=== PATIENT | male | born 1935 | race Caucasian/White ===

== ENCOUNTER 2020-03-16 17:13 | Emergency (ER) | payer OTHER ==
--- OUTSIDE RECORDS SUMMARY | 2020-03-16 17:15 | XMS REPORT | Clinical Summary ---
:1935 Author Organization [facility] Address [address] [place] [address] Care Team Providers Name Role Phone Artem Resendiz Primary Care Provider Santosh Romero Unavailable Allergies Active Allergy Reactions Severity Noted Date Comments No Known Drug Allergies 08/04/2015 Medications Medication Sig Dispensed Refills Start Date End Date Status amLODIPine (NORVASC) Take 10 mg by 0 Active 10 MG tablet mouth daily. atorvastatin (LIPITOR) Take 80 mg by 0 Active 80 MG tablet mouth daily. fenofibrate (TRICOR) Take 145 mg by 0 Active 145 MG tablet mouth daily. lisinopril Take 2.5 mg by 0 Acti ve (PRINIVIL,ZESTRIL) 2.5 mouth daily. MG tablet cholecalciferol, Take 1 capsule by 0 Active vitamin D3, 2,000 unit mouth every Cap evening. cyanocobalamin Take 1,000 mcg by 0 Active (VITAMIN B-12) 1000 mouth daily. MCG tablet apixaban (ELIQUIS) 5 Take 1 tablet (5 60 tablet 3 02/19/2017 Active mg Tab tablet mg total) by mouth 2 (two) times daily. bisacodyl (DULCOLAX) 5 Take 2 tablets (10 0 02/21/20 17 Active mg EC tablet mg total) by mouth daily as needed for Constipation. bisacodyl (DULCOLAX) Place 1 0 02/20/2017 Active 10 mg suppository suppository (10 mg total) rectally daily as needed. famotidine (PEPCID) 20 Take 1 tablet (20 0 7 Active MG tablet mg total) by mouth 2 (two) times daily. amiodarone (PACERONE) Take 1 tablet (200 0 7 Active 200 MG tablet mg total) by mouth daily Take for 4 weeks, then stop. polyethylene glycol Take 17 g by mouth 0 02/20/2017 Active (GLYCOLAX) 17 gram daily. packet Active Problems Problem Noted Date S/P CABG (coronary artery bypass graft) 02/20/2017 PAF (paroxysmal atrial fibrillation) 02/20/2017 Acute kidney injury 02/20/2017 Angina pectoris, crescendo 02/13/2017 CAD (coronary artery disease) 02/13/2017 Asbestos exposure Coronary artery disease Hyperlipidemia Hypertension Cancer Overview: lung,kidney,skin Encounter for antineoplastic chemotherapy Family History Medical History Relation Name Comments Heart disease Brother Heart disease Father Stroke Mother Relation Name Status Comments Brother Father Mother Social History Tobacco Use Types Packs/Day Years Used Date Never Smoker Smokeless Tobacco: Never Used Alcohol Use Drinks/Week oz/Week Comments No Sex Assigned at Date Recorded Not on file Last Filed Vital Signs Not on file Plan of Treatment Not on file Results Not on fileafter 03/16/2019 Insurance Payer Benefit Plan / Subscriber ID Effective Dates Phone Addre ss Type Group [facility] [employer] [id number] 2016-Present MEDICARE [facility] CARE O Advance Directives For more information, please contact: [phone] Type Date Recorded 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
--- OUTSIDE RECORDS SUMMARY | 2020-03-16 17:17 | XMS REPORT | Continuity of Care Document ---
:1935 Author Organization [facility] t Address [address] [place] [address] Care Team Providers Name Role Phone Artem Resendiz Primary Care Physician AJ DOMINGUEZ Attending Clinician Unavailable AJ DOMINGUEZ Admitting Clinician Unavailable Problems Condition Condition Condition Status Onset Resolution Last Treating Co mments Source Name Details Category Date Date Treatment Clinician Date S/P CABG S/P CABG [facility]20 [place] [facility] - artery artery 00:00: Medical bypass bypass 00 [place] graft) graft) PAF PAF Disease Active [facility] (paroxysma (paroxysma 02-20 k[facility] - l atrial l atrial 00:00: Medica l fibrillati fibrillati 00 Ce nter on) on) Acute Acute Disease Active [facility] kidney kidney 02-20 [facility] - injury injury 00:00: Medical 00 [place] Angina Angina Disease Active [facility] pectoris, pectoris, 02-13 [place] [facility] - crescendo crescendo 00:00: [facility] gemma [address] [place] [address] Asbestos Asbestos Disease [facility] exposure [facility] Coronary Coronary Disease Active [facility] artery artery [facility] Hyperlipid Hyperlipid Disease Active [facility] emia emia [facility] Hypertensi Hypertensi Disease Active [facility] on on [facility] Cancer Cancer Disease Active Overview: [facility] lung,kidn [facility] Encounter Encounter Disease Active [facility] for for [facility] - antineopla antineopla Me dical stic [facility] chemothera chemothera py py Allergies, Adverse Reactions, Alerts This patient has no known allergies or adverse reactions. Family History Family Member Diagnosis Comments Start Date Stop Date Source Natural brother Heart disease [facility] Natural father Heart disease [facility] Natural mother Stroke [facility] Social History Social Habit Start Date Stop Date Quantity Comments Source Sex Assigned At [facility] Tobacco use and 2017-02-13 2017-02-13 Never used [facility] - exposure 00:00:00 00:00:00 [facility] Alcohol intake 2017-02-13 2017-02-13 Current [facility] - 00:00:00 00:00:00 non-drinker of Medical Ce nter alcohol (finding) Smoking Status Start Date Stop Date Source [facility] [place] Medications Ordered Filled Start Stop Current Ordering Indication Dosage Frequency Signature Comments Components Source Medication Medication Date Date Medication? Clinician (SIG) Name Name amLODIPine Yes 10mg QD Take [address] (NORVASC) 9-26 by mouth [facility] - 10 MG 14:42: daily. Medical tablet 59 [place] atorvastati Yes 80mg QD Take [address] n (LIPITOR) 9-26 by mouth [facility] - 80 MG 14:42: daily. Medical tablet 59 [place] fenofibrate Yes 145mg QD Take [address] (TRICOR) 9-26 mg by [facility] - 145 MG 14:42: mouth Medical tablet 59 daily. [place] lisinopril Yes 2.5mg QD Take 2.[address] (PRINIVIL,Z 9-26 mg by Arnaldo - ESTRIL) 2.5 14:42: mouth Medic al MG tablet 59 daily. [place] cholecalcif Yes 1{capsu QD Take [address] jone, 9-26 le} capsule by [facility] - vitamin D3, 14:42: mouth Medic al 2,000 unit 59 every [place] Cap evening. cyanocobala Yes 1000ug QD Take 1,[address] min 9-26 mcg by [facility] - (VITAMIN 14:42: mouth Medical B-12) 1000 59 daily. [place] MCG tablet bisacodyl Yes 10mg Take [address] (DULCOLAX) 9-26 tablets [facility] - 5 mg EC 00:00: (10 mg Medical tablet 00 total) by Center mouth daily as needed for Constipati on. bisacodyl 2017-[address] [facility] (DULCOLAX) 9- suppositor Jenifer es - 10 mg 00:00: y (10 mg Medical suppository 00 total) Center rectally daily as needed. famotidine 2017-0 Yes 20mg Q.5D Take 1 [facility] (PEPCID) 20 9-26 tablet (20 Noemi kes - MG tablet 00:00: mg total) Med ical 00 by mouth 2 Center (two) times daily. amiodarone 2017-0 Yes 200mg QD Take [address] (PACERONE) 9-26 tablet [facility] - 200 MG 00:00: (200 mg Medical tablet 00 total) by Center mouth daily Take for 4 weeks, then stop. polyethylen 2017-0 Yes 17g QD Take [address] e glycol -26 by mouth [facility] - (GLYCOLAX) 00:00: daily. Medic al 17 gram 00 Center packet apixaban 2016-0 Yes 5mg Q.5D Take [address] (ELIQUIS) 5 -25 tablet (5 Jenifer es - mg Tab 00:00: mg total) Medica l tablet 00 by mouth 2 Center (two) times daily. Procedures This patient has no known procedures. Results Test Description Test Time Test Comments Results Result Comments Source B-TYPE NATRIURETIC FACTOR (BNP) 2017-02-19 04:49:00 Test Item Value Reference Range Interpretation Comme nts B-TYPE NATRIURETIC PEPTIDE (BEAKER) (test code = 700) 279 pg/mL 0-100 H BASIC METABOLIC [id number] 04:47:00 Test Item Value Reference Range Interpretation Comments SODIUM (BEAKER) 139 meq/L 136-145 (test code = 381) POTASSIUM (BEAKER) 4.2 meq/L 3.5-5.1 (test code = 379) CHLORIDE (BEAKER) 106 meq/L 98-107 (test code = 382) CO2 (BEAKER) (test 26 meq/L 22-29 code = 355) BLOOD UREA NITROGEN 33 mg/dL 7-21 H (BEAKER) (test code = 354) CREATININE (BEAKER) 1.25 mg/dL 0.57-1.25 (test code = 358) GLUCOSE RANDOM 91 mg/dL 70-105 (BEAKER) (test code = 652) CALCIUM (BEAKER) 8.7 mg/dL 8.4-10.2 (test code = 697) EGFR (BEAKER) (test 55 mL/min/1.73 ESTIMA AMANDA GFR IS code = 1092) sq m NOT ACCURATE CREATININE CLEARANCE IN PREDICTING GLOMERULAR FILTRATION RATE . ESTIMATED GFR I S NOT APPLICABLE FOR DIALYSIS PATIEN TS. CBC W/PLT COUNT & AUTO [id number] 04:37:00 Test Item Value Reference Range Interpretation Comments WHITE BLOOD CELL COUNT (BEAKER) 9.4 K/ L 3.5-10.5 (test code = 775) RED BLOOD CELL COUNT (BEAKER) 2.79 M/ L 4.63-6.08 L (test code = 761) HEMOGLOBIN (BEAKER) (test code = 9.3 GM/DL 13.7-17.5 L 410) HEMATOCRIT (BEAKER) (test code = 28.5 % 40.1-51.0 L 411) MEAN CORPUSCULAR VOLUME (BEAKER) 102.2 fL 79.0-92.2 H (test code = 753) MEAN CORPUSCULAR HEMOGLOBIN 33.3 pg 25.7-32.2 H (BEAKER) (test code = 751) MEAN CORPUSCULAR HEMOGLOBIN CONC 32.6 GM/DL 32.3-36.5 (BEAKER) (test code = 752) RED CELL DISTRIBUTION WIDTH 13.8 % 11.6-14.4 (BEAKER) (test code = 412) PLATELET COUNT (BEAKER) (test 181 K/CU MM 150-450 code = 756) MEAN PLATELET VOLUME (BEAKER) 9.2 fL 9.4-12.4 L (test code = 754) NUCLEATED RED BLOOD CELLS 0 /100 WBC 0-0 (BEAKER) (test code = 413) NEUTROPHILS RELATIVE PERCENT 74 % (BEAKER) (test code = 429) LYMPHOCYTES RELATIVE PERCENT 11 % (BEAKER) (test code = 430) MONOCYTES RELATIVE PERCENT 10 % (BEAKER) (test code = 431) EOSINOPHILS RELATIVE PERCENT 4 % (BEAKER) (test code = 432) BASOPHILS RELATIVE PERCENT 0 % (BEAKER) (test code = 437) NEUTROPHILS ABSOLUTE COUNT 6.92 K/ L 1.78-5.38 H (BEAKER) (test code = 670) LYMPHOCYTES ABSOLUTE COUNT 1.01 K/ L 1.32-3.57 L (BEAKER) (test code = 414) MONOCYTES ABSOLUTE COUNT (BEAKER) 0.90 K/ L 0.30-0.82 H (test code = 415) EOSINOPHILS ABSOLUTE COUNT 0.35 K/ L 0.04-0.54 (BEAKER) (test code = 416) BASOPHILS ABSOLUTE COUNT (BEAKER) 0.04 K/ L 0.01-0.08 (test code = 417) IMMATURE GRANULOCYTES-RELATIVE 2 % 0-1 H PERCENT (BEAKER) (test code = 2801) BASIC METABOLIC [id number] 04:58:00 Test Item Value Reference Range Interpretation Comments SODIUM (BEAKER) 136 meq/L 136-145 (test code = 381) POTASSIUM (BEAKER) 4.4 meq/L 3.5-5.1 (test code = 379) CHLORIDE (BEAKER) 104 meq/L 98-107 (test code = 382) CO2 (BEAKER) (test 26 meq/L 22-29 code = 355) BLOOD UREA NITROGEN 32 mg/dL 7-21 H (BEAKER) (test code = 354) CREATININE (BEAKER) 1.23 mg/dL 0.57-1.25 (test code = 358) GLUCOSE RANDOM 105 mg/dL 70-105 (BEAKER) (test code = 652) CALCIUM (BEAKER) 8.5 mg/dL 8.4-10.2 (test code = 697) EGFR (BEAKER) (test 56 mL/min/1.73 ESTIMA AMANDA GFR IS code = 1092) sq m NOT ACCURATE CREATININE CLEARANCE IN PREDICTING GLOMERULAR FILTRATION RATE . ESTIMATED GFR I S NOT APPLICABLE FOR DIALYSIS PATIEN TS. CBC W/PLT COUNT & AUTO [id number] 04:38:00 Test Item Value Reference Range Interpretation Comments WHITE BLOOD CELL COUNT (BEAKER) 9.3 K/ L 3.5-10.5 (test code = 775) RED BLOOD CELL COUNT (BEAKER) 2.85 M/ L 4.63-6.08 L (test code = 761) HEMOGLOBIN (BEAKER) (test code = 9.2 GM/DL 13.7-17.5 L 410) HEMATOCRIT (BEAKER) (test code = 28.6 % 40.1-51.0 L 411) MEAN CORPUSCULAR VOLUME (BEAKER) 100.4 fL 79.0-92.2 H (test code = 753) MEAN CORPUSCULAR HEMOGLOBIN 32.3 pg 25.7-32.2 H (BEAKER) (test code = 751) MEAN CORPUSCULAR HEMOGLOBIN CONC 32.2 GM/DL 32.3-36.5 L (BEAKER) (test code = 752) RED CELL DISTRIBUTION WIDTH 13.8 % 11.6-14.4 (BEAKER) (test code = 412) PLATELET COUNT (BEAKER) (test 173 K/CU MM 150-450 code = 756) MEAN PLATELET VOLUME (BEAKER) 9.4 fL 9.4-12.4 (test code = 754) NUCLEATED RED BLOOD CELLS 0 /100 WBC 0-0 (BEAKER) (test code = 413) NEUTROPHILS RELATIVE PERCENT 77 % (BEAKER) (test code = 429) LYMPHOCYTES RELATIVE PERCENT 8 % (BEAKER) (test code = 430) MONOCYTES RELATIVE PERCENT 11 % (BEAKER) (test code = 431) EOSINOPHILS RELATIVE PERCENT 3 % (BEAKER) (test code = 432) BASOPHILS RELATIVE PERCENT 0 % (BEAKER) (test code = 437) NEUTROPHILS ABSOLUTE COUNT 7.20 K/ L 1.78-5.38 H (BEAKER) (test code = 670) LYMPHOCYTES ABSOLUTE COUNT 0.73 K/ L 1.32-3.57 L (BEAKER) (test code = 414) MONOCYTES ABSOLUTE COUNT (BEAKER) 0.99 K/ L 0.30-0.82 H (test code = 415) EOSINOPHILS ABSOLUTE COUNT 0.26 K/ L 0.04-0.54 (BEAKER) (test code = 416) BASOPHILS ABSOLUTE COUNT (BEAKER) 0.03 K/ L 0.01-0.08 (test code = 417) IMMATURE GRANULOCYTES-RELATIVE 1 % 0-1 PERCENT (BEAKER) (test code = 2801) RAD, CHEST, 1 VIEW, NON [id number] 09:13:00Reason for exam:->s/p cabShould this be performed at the bedside?->YesFINAL REPORT Chest one view compared to February 15, 2017 Discussion: Cardiac prominence, pulmonary congestion, probable small effusions, suspected lower lung atelectasis are again noted overall similar. No pneumothorax. IMPRESSIONS: No significant change Signed: Melanie Alex MDReport Verified Date/Time: 02/16/2017 09:13:27 Reading Location: [facility] Radiology Reading Room CALCIUM, [id number] 00:40:00 Test Item Value Reference Range Interpretation Comments CALCIUM IONIZED (BEAKER) (test 1.10 mmol/L 1.12-1.27 L code = 698) PH, BLOOD (BEAKER) (test code = 7.47 1810) [id number] 00:37:00 Test Item Value Reference Range Interpretation Comments PHOSPHORUS (BEAKER) (test code = 2.3 mg/dL 2.3-4.7 604) [id number] 00:37:00 Test Item Value Reference Range Interpretation Comments MAGNESIUM (BEAKER) (test code = 2.2 mg/dL 1.6-2.6 627) BASIC METABOLIC [id number] 00:37:00 Test Item Value Reference Range Interpretation Comments SODIUM (BEAKER) 137 meq/L 136-145 (test code = 381) POTASSIUM (BEAKER) 3.8 meq/L 3.5-5.1 (test code = 379) CHLORIDE (BEAKER) 107 meq/L 98-107 (test code = 382) CO2 (BEAKER) (test 24 meq/L 22-29 code = 355) BLOOD UREA NITROGEN 31 mg/dL 7-21 H (BEAKER) (test code = 354) CREATININE (BEAKER) 1.15 mg/dL 0.57-1.25 (test code = 358) GLUCOSE RANDOM 105 mg/dL 70-105 (BEAKER) (test code = 652) CALCIUM (BEAKER) 8.4 mg/dL 8.4-10.2 (test code = 697) EGFR (BEAKER) (test 61 mL/min/1.73 ESTIMA AMANDA GFR IS code = 1092) sq m NOT ACCURATE CREATININE CLEARANCE IN PREDICTING GLOMERULAR FILTRATION RATE . ESTIMATED GFR I S NOT APPLICABLE FOR DIALYSIS PATIEN TS. CBC W/PLT COUNT & AUTO [id number] 00:05:00 Test Item Value Reference Range Interpretation Comments WHITE BLOOD CELL COUNT (BEAKER) 11.3 K/ L 3.5-10.5 H (test code = 775) RED BLOOD CELL COUNT (BEAKER) 3.09 M/ L 4.63-6.08 L (test code = 761) HEMOGLOBIN (BEAKER) (test code = 10.4 GM/DL 13.7-17.5 L 410) HEMATOCRIT (BEAKER) (test code = 30.7 % 40.1-51.0 L 411) MEAN CORPUSCULAR VOLUME (BEAKER) 99.4 fL 79.0-92.2 H (test code = 753) MEAN CORPUSCULAR HEMOGLOBIN 33.7 pg 25.7-32.2 H (BEAKER) (test code = 751) MEAN CORPUSCULAR HEMOGLOBIN CONC 33.9 GM/DL 32.3-36.5 (BEAKER) (test code = 752) RED CELL DISTRIBUTION WIDTH 14.2 % 11.6-14.4 (BEAKER) (test code = 412) PLATELET COUNT (BEAKER) (test 106 K/CU MM 150-450 L code = 756) MEAN PLATELET VOLUME (BEAKER) 9.4 fL 9.4-12.4 (test code = 754) NUCLEATED RED BLOOD CELLS 0 /100 WBC 0-0 (BEAKER) (test code = 413) NEUTROPHILS RELATIVE PERCENT 85 % (BEAKER) (test code = 429) LYMPHOCYTES RELATIVE PERCENT 6 % (BEAKER) (test code = 430) MONOCYTES RELATIVE PERCENT 7 % (BEAKER) (test code = 431) EOSINOPHILS RELATIVE PERCENT 0 % (BEAKER) (test code = 432) BASOPHILS RELATIVE PERCENT 0 % (BEAKER) (test code = 437) NEUTROPHILS ABSOLUTE COUNT 9.68 K/ L 1.78-5.38 H (BEAKER) (test code = 670) LYMPHOCYTES ABSOLUTE COUNT 0.71 K/ L 1.32-3.57 L (BEAKER) (test code = 414) MONOCYTES ABSOLUTE COUNT (BEAKER) 0.78 K/ L 0.30-0.82 (test code = 415) EOSINOPHILS ABSOLUTE COUNT 0.05 K/ L 0.04-0.54 (BEAKER) (test code = 416) BASOPHILS ABSOLUTE COUNT (BEAKER) 0.01 K/ L 0.01-0.08 (test code = 417) IMMATURE GRANULOCYTES-RELATIVE 1 % 0-1 PERCENT (BEAKER) (test code = 2801) RAD, CHEST, 1 VIEW, NON [id number] 08:15:00Reason for exam:->s/p cabShould this be performed at the bedside?->YesFINAL REPORT Chest one view compared to February 14 Discussion: Pulmonary con gestion, bilateral probable atelectasis, small left-sided effusion are noted. No pneumothorax. Rightchest tube is in place. IMPRESSIONS: No significant change Signed: Melanie Alex Verified Date/Time: 02/15/2017 08:15:42 Reading Location: [facility] Radiology Reading Room CALCIUM, [id number] 07:09:00 Test Item Value Reference Range Interpretation Comments CALCIUM IONIZED (BEAKER) (test 1.14 mmol/L 1.12-1.27 code = 698) PH, BLOOD (BEAKER) (test code = 7.40 1810) [id number] 06:21:00 Test Item Value Reference Range Interpretation Comments PHOSPHORUS (BEAKER) (test code = 2.7 mg/dL 2.3-4.7 604) [id number] 06:21:00 Test Item Value Reference Range Interpretation Comments MAGNESIUM (BEAKER) (test code = 2.2 mg/dL 1.6-2.6 627) BASIC METABOLIC [id number] 06:21:00 Test Item Value Reference Range Interpretation Comments SODIUM (BEAKER) 139 meq/L 136-145 (test code = 381) POTASSIUM (BEAKER) 4.2 meq/L 3.5-5.1 (test code = 379) CHLORIDE (BEAKER) 108 meq/L 98-107 H (test code = 382) CO2 (BEAKER) (test 24 meq/L 22-29 code = 355) BLOOD UREA NITROGEN 27 mg/dL 7-21 H (BEAKER) (test code = 354) CREATININE (BEAKER) 1.28 mg/dL 0.57-1.25 H (test code = 358) GLUCOSE RANDOM 116 mg/dL 70-105 H (BEAKER) (test code = 652) CALCIUM (BEAKER) 8.7 mg/dL 8.4-10.2 (test code = 697) EGFR (BEAKER) (test 54 mL/min/1.73 ESTIMA AMANDA GFR IS code = 1092) sq m NOT ACCURATE CREATININE CLEARANCE IN PREDICTING GLOMERULAR FILTRATION RATE . ESTIMATED GFR I S NOT APPLICABLE FOR DIALYSIS PATIEN TS. CBC W/PLT COUNT & AUTO [id number] 06:14:00 Test Item Value Reference Range Interpretation Comments WHITE BLOOD CELL COUNT (BEAKER) 12.9 K/ L 3.5-10.5 H (test code = 775) RED BLOOD CELL COUNT (BEAKER) 3.21 M/ L 4.63-6.08 L (test code = 761) HEMOGLOBIN (BEAKER) (test code = 10.9 GM/DL 13.7-17.5 L 410) HEMATOCRIT (BEAKER) (test code = 32.2 % 40.1-51.0 L 411) MEAN CORPUSCULAR VOLUME (BEAKER) 100.3 fL 79.0-92.2 H (test code = 753) MEAN CORPUSCULAR HEMOGLOBIN 34.0 pg 25.7-32.2 H (BEAKER) (test code = 751) MEAN CORPUSCULAR HEMOGLOBIN CONC 33.9 GM/DL 32.3-36.5 (BEAKER) (test code = 752) RED CELL DISTRIBUTION WIDTH 14.3 % 11.6-14.4 (BEAKER) (test code = 412) PLATELET COUNT (BEAKER) (test code 95 K/CU MM 150-450 L = 756) MEAN PLATELET VOLUME (BEAKER) 9.4 fL 9.4-12.4 (test code = 754) NUCLEATED RED BLOOD CELLS (BEAKER) 0 /100 WBC 0-0 (test code = 413) NEUTROPHILS RELATIVE PERCENT 88 % (BEAKER) (test code = 429) LYMPHOCYTES RELATIVE PERCENT 4 % (BEAKER) (test code = 430) MONOCYTES RELATIVE PERCENT 7 % (BEAKER) (test code = 431) EOSINOPHILS RELATIVE PERCENT 0 % (BEAKER) (test code = 432) BASOPHILS RELATIVE PERCENT 0 % (BEAKER) (test code = 437) NEUTROPHILS ABSOLUTE COUNT 11.37 K/ L 1.78-5.38 H (BEAKER) (test code = 670) LYMPHOCYTES ABSOLUTE COUNT 0.52 K/ L 1.32-3.57 L (BEAKER) (test code = 414) MONOCYTES ABSOLUTE COUNT (BEAKER) 0.85 K/ L 0.30-0.82 H (test code = 415) EOSINOPHILS ABSOLUTE COUNT 0.01 K/ L 0.04-0.54 L (BEAKER) (test code = 416) BASOPHILS ABSOLUTE COUNT (BEAKER) 0.04 K/ L 0.01-0.08 (test code = 417) IMMATURE GRANULOCYTES-RELATIVE 1 % 0-1 PERCENT (BEAKER) (test code = 2801) LACTIC ACID, VENOUS, WHOLE [id number] 06:11:00 Test Item Value Reference Range Interpretation Comments LACTATE BLOOD VENOUS (2) (BEAKER) 1.5 mmol/L 0.5-2.2 (test code = 2872) Effective 09/29/2015: Units/Reference Range ChangeNew: 0.5-2.2 mmol/L Previous: 5-20 mg/dLBASIC METABOLIC [id number] 14:18:00 Test Item Value Reference Range Interpretation Comments SODIUM (BEAKER) 140 meq/L 136-145 (test code = 381) POTASSIUM (BEAKER) 4.4 meq/L 3.5-5.1 (test code = 379) CHLORIDE (BEAKER) 110 meq/L 98-107 H (test code = 382) CO2 (BEAKER) (test 21 meq/L 22-29 L code = 355) BLOOD UREA NITROGEN 23 mg/dL 7-21 H (BEAKER) (test code = 354) CREATININE (BEAKER) 1.29 mg/dL 0.57-1.25 H (test code = 358) GLUCOSE RANDOM 112 mg/dL 70-105 H (BEAKER) (test code = 652) CALCIUM (BEAKER) 8.7 mg/dL 8.4-10.2 (test code = 697) EGFR (BEAKER) (test 53 mL/min/1.73 ESTIMA AMANDA GFR IS code = 1092) sq m NOT ACCURATE CREATININE CLEARANCE IN PREDICTING GLOMERULAR FILTRATION RATE . ESTIMATED GFR I S NOT APPLICABLE FOR DIALYSIS PATIEN TS. CBC (HEMOGRAM ONLY)2017-02-14 14:02:00 Test Item Value Reference Range Interpretation Comments WHITE BLOOD CELL COUNT (BEAKER) 12.1 K/ L 3.5-10.5 H (test code = 775) RED BLOOD CELL COUNT (BEAKER) 3.25 M/ L 4.63-6.08 L (test code = 761) HEMOGLOBIN (BEAKER) (test code = 10.9 GM/DL 13.7-17.5 L 410) HEMATOCRIT (BEAKER) (test code = 32.1 % 40.1-51.0 L 411) MEAN CORPUSCULAR VOLUME (BEAKER) 98.8 fL 79.0-92.2 H (test code = 753) MEAN CORPUSCULAR HEMOGLOBIN 33.5 pg 25.7-32.2 H (BEAKER) (test code = 751) MEAN CORPUSCULAR HEMOGLOBIN CONC 34.0 GM/DL 32.3-36.5 (BEAKER) (test code = 752) RED CELL DISTRIBUTION WIDTH 14.2 % 11.6-14.4 (BEAKER) (test code = 412) PLATELET COUNT (BEAKER) (test code 89 K/CU MM 150-450 L = 756) MEAN PLATELET VOLUME (BEAKER) 9.7 fL 9.4-12.4 (test code = 754) NUCLEATED RED BLOOD CELLS (BEAKER) 0 /100 WBC 0-0 (test code = 413) PLATELET AGGREGATION: FUNCTION [id number] 10:02:00 Test Item Value Reference Range Interpretation Comments WEAK ADP 71 % 60-91 RESULT(BEAKER) (test code = 2135) PLATELET FUNCTION 60-100% indicates SCREEN INTERP (BEAKER) normal platelet (test code = 2173) function [id number] Yolanda Cullen MD (BEAKER) (test code = (electronic signature) 2622) PLATELET COUNT AGG 161 K/CU MM 150-450 (BEAKER) (test code = 2656) RAD, CHEST, 1 VIEW, NON [id number] 08:08:00Reason for exam:->s/p cabShould this be performed at the bedside?->YesFINAL REPORT Chest, one view. HISTORY: Postop COMPARISON: 02/13/2017 IMPRESSION: Interval extubation and removal of feeding catheter. Remaining supporting lines and tubes grosslyunchanged in position. Interval increase in retrocardiac and left lower lung opacities, possibly representing aspiration or pneumonia. Trace left pleural effusion. No identifiable pneumothorax. Unchanged enlargement of the cardiomediastinal silhouette. Signed: Vinay Dominique MDReport Verified Date/Time: 02/14/2017 08:08:07 Reading Location: [facility] Diagnostic Imaging Reading Room - [place] [id number] CALCIUM, [id number] 04:14:00 Test Item Value Reference Range Interpretation Comments CALCIUM IONIZED (BEAKER) (test 1.17 mmol/L 1.12-1.27 code = 698) PH, BLOOD (BEAKER) (test code = 7.37 1810) [id number] 04:02:00 Test Item Value Reference Range Interpretation Comments PHOSPHORUS (BEAKER) (test code = 2.4 mg/dL 2.3-4.7 604) [id number] 04:02:00 Test Item Value Reference Range Interpretation Comments MAGNESIUM (BEAKER) (test code = 2.0 mg/dL 1.6-2.6 627) BASIC METABOLIC [id number] 04:02:00 Test Item Value Reference Range Interpretation Comments SODIUM (BEAKER) 142 meq/L 136-145 (test code = 381) POTASSIUM (BEAKER) 3.7 meq/L 3.5-5.1 (test code = 379) CHLORIDE (BEAKER) 112 meq/L 98-107 H (test code = 382) CO2 (BEAKER) (test 21 meq/L 22-29 L code = 355) BLOOD UREA NITROGEN 21 mg/dL 7-21 (BEAKER) (test code = 354) CREATININE (BEAKER) 1.54 mg/dL 0.57-1.25 H (test code = 358) GLUCOSE RANDOM 133 mg/dL 70-105 H (BEAKER) (test code = 652) CALCIUM (BEAKER) 8.8 mg/dL 8.4-10.2 (test code = 697) EGFR (BEAKER) (test 43 mL/min/1.73 ESTIMA AMANDA GFR IS code = 1092) sq m NOT ACCURATE CREATININE CLEARANCE IN PREDICTING GLOMERULAR FILTRATION RATE . ESTIMATED GFR I S NOT APPLICABLE FOR DIALYSIS PATIEN TS. LACTIC ACID, ARTERIAL, WHOLE [id number] 03:54:00 Test Item Value Reference Range Interpretation Comments LACTATE BLOOD ARTERIAL (2) 3.7 mmol/L 0.5-2.2 H (BEAKER) (test code = 2874) Effective 09/29/2015: Units/Reference Range ChangeNew: 0.5-2.2 mmol/L Previous: 5-20 mg/dLCBC W/PLT COUNT & AUTO [id number] 03:50:00 Test Item Value Reference Range Interpretation Comments WHITE BLOOD CELL COUNT (BEAKER) 9.1 K/ L 3.5-10.5 (test code = 775) RED BLOOD CELL COUNT (BEAKER) 3.04 M/ L 4.63-6.08 L (test code = 761) HEMOGLOBIN (BEAKER) (test code = 10.1 GM/DL 13.7-17.5 L 410) HEMATOCRIT (BEAKER) (test code = 30.1 % 40.1-51.0 L 411) MEAN CORPUSCULAR VOLUME (BEAKER) 99.0 fL 79.0-92.2 H (test code = 753) MEAN CORPUSCULAR HEMOGLOBIN 33.2 pg 25.7-32.2 H (BEAKER) (test code = 751) MEAN CORPUSCULAR HEMOGLOBIN CONC 33.6 GM/DL 32.3-36.5 (BEAKER) (test code = 752) RED CELL DISTRIBUTION WIDTH 13.7 % 11.6-14.4 (BEAKER) (test code = 412) PLATELET COUNT (BEAKER) (test code 76 K/CU MM 150-450 L = 756) MEAN PLATELET VOLUME (BEAKER) 9.2 fL 9.4-12.4 L (test code = 754) NUCLEATED RED BLOOD CELLS (BEAKER) 0 /100 WBC 0-0 (test code = 413) NEUTROPHILS RELATIVE PERCENT 86 % (BEAKER) (test code = 429) LYMPHOCYTES RELATIVE PERCENT 4 % (BEAKER) (test code = 430) MONOCYTES RELATIVE PERCENT 9 % (BEAKER) (test code = 431) EOSINOPHILS RELATIVE PERCENT 0 % (BEAKER) (test code = 432) BASOPHILS RELATIVE PERCENT 0 % (BEAKER) (test code = 437) NEUTROPHILS ABSOLUTE COUNT 7.83 K/ L 1.78-5.38 H (BEAKER) (test code = 670) LYMPHOCYTES ABSOLUTE COUNT 0.37 K/ L 1.32-3.57 L (BEAKER) (test code = 414) MONOCYTES ABSOLUTE COUNT (BEAKER) 0.86 K/ L 0.30-0.82 H (test code = 415) EOSINOPHILS ABSOLUTE COUNT 0.00 K/ L 0.04-0.54 L (BEAKER) (test code = 416) BASOPHILS ABSOLUTE COUNT (BEAKER) 0.01 K/ L 0.01-0.08 (test code = 417) IMMATURE GRANULOCYTES-RELATIVE 1 % 0-1 PERCENT (BEAKER) (test code = 2801) BLOOD GAS, [id number] 03:49:00 Test Item Value Reference Range Interpretation Comments PH ARTERIAL (BEAKER) (test code = 7.37 7.35-7.45 383) PCO2 ARTERIAL (BEAKER) (test code 39 mmHg 35-45 = 384) PO2 ARTERIAL (BEAKER) (test code 75 mmHg 80-90 L = 385) O2 SATURATION ARTERIAL (BEAKER) 94.9 % 96.0-97.0 L (test code = 386) HCO3 ARTERIAL (BEAKER) (test code 22 mmol/L 21-29 = 388) BASE EXCESS ARTERIAL (BEAKER) -3.0 mmol/L -2.0-3.0 L (test code = 387) PATIENT TEMPERATURE (BEAKER) 36.8 C (test code = 1818) FIO2 (BEAKER) (test code = 1819) 36.0 % OXYGEN SATURATION, [id number] 03:43:00 Test Item Value Reference Range Interpretation Comments O2 SATURATION (MEASURED) (BEAKER) 72.9 % (test code = 1455) [id number] 01:21:00 Test Item Value Reference Range Interpretation Comments MAGNESIUM (BEAKER) (test code = 2.1 mg/dL 1.6-2.6 627) Check Serum Magnesium level 2 hours after IV magnesium replacement.BLOOD GAS, [id number] 01:18:00 Test Item Value Reference Range Interpretation Comments PH ARTERIAL (BEAKER) (test code = 7.31 7.35-7.45 L 383) PCO2 ARTERIAL (BEAKER) (test code 34 mmHg 35-45 L = 384) PO2 ARTERIAL (BEAKER) (test code 110 mmHg 80-90 H = 385) O2 SATURATION ARTERIAL (BEAKER) 97.7 % 96.0-97.0 H (test code = 386) HCO3 ARTERIAL (BEAKER) (test code 17 mmol/L 21-29 L = 388) BASE EXCESS ARTERIAL (BEAKER) -8.5 mmol/L -2.0-3.0 L (test code = 387) PATIENT TEMPERATURE (BEAKER) 37.0 C (test code = 1818) FIO2 (BEAKER) (test code = 1819) 40.0 % HGB/HCT (H&H) - STAT [id number] 01:18:00 Test Item Value Reference Range Interpretation Comments HEMOGLOBIN (BEAKER) (test code = 11.6 g/dL 13.0-16.8 L 410) HEMATOCRIT (BEAKER) (test code = 34.0 % 40.0-50.0 L 411) GLUCOSE-STAT [id number] 01:18:00 Test Item Value Reference Range Interpretation Comments GLUCOSE RANDOM (BEAKER) (test code 148 mg/dL 70-110 H = 652) CALCIUM, [id number] 01:12:00 Test Item Value Reference Range Interpretation Comments CALCIUM IONIZED (BEAKER) (test 1.17 mmol/L 1.12-1.27 code = 698) PH, BLOOD (BEAKER) (test code = 7.31 1810) Check serum Ionized Calcium level after 4 hours after IV Calcium replacement.CBC W/PLT COUNT & AUTO [id number] 22:40:00 Test Item Value Reference Range Interpretation Comments WHITE BLOOD CELL COUNT (BEAKER) 21.5 K/ L 3.5-10.5 H (test code = 775) RED BLOOD CELL COUNT (BEAKER) 3.39 M/ L 4.63-6.08 L (test code = 761) HEMOGLOBIN (BEAKER) (test code = 11.4 GM/DL 13.7-17.5 L 410) HEMATOCRIT (BEAKER) (test code = 33.9 % 40.1-51.0 L 411) MEAN CORPUSCULAR VOLUME (BEAKER) 100.0 fL 79.0-92.2 H (test code = 753) MEAN CORPUSCULAR HEMOGLOBIN 33.6 pg 25.7-32.2 H (BEAKER) (test code = 751) MEAN CORPUSCULAR HEMOGLOBIN CONC 33.6 GM/DL 32.3-36.5 (BEAKER) (test code = 752) RED CELL DISTRIBUTION WIDTH 13.6 % 11.6-14.4 (BEAKER) (test code = 412) PLATELET COUNT (BEAKER) (test 126 K/CU MM 150-450 L code = 756) MEAN PLATELET VOLUME (BEAKER) 9.3 fL 9.4-12.4 L (test code = 754) NUCLEATED RED BLOOD CELLS 0 /100 WBC 0-0 (BEAKER) (test code = 413) NEUTROPHILS RELATIVE PERCENT 76 % (BEAKER) (test code = 429) LYMPHOCYTES RELATIVE PERCENT 15 % (BEAKER) (test code = 430) MONOCYTES RELATIVE PERCENT 6 % (BEAKER) (test code = 431) EOSINOPHILS RELATIVE PERCENT 2 % (BEAKER) (test code = 432) BASOPHILS RELATIVE PERCENT 0 % (BEAKER) (test code = 437) NEUTROPHILS ABSOLUTE COUNT 16.28 K/ L 1.78-5.38 H (BEAKER) (test code = 670) LYMPHOCYTES ABSOLUTE COUNT 3.11 K/ L 1.32-3.57 (BEAKER) (test code = 414) MONOCYTES ABSOLUTE COUNT (BEAKER) 1.21 K/ L 0.30-0.82 H (test code = 415) EOSINOPHILS ABSOLUTE COUNT 0.50 K/ L 0.04-0.54 (BEAKER) (test code = 416) BASOPHILS ABSOLUTE COUNT (BEAKER) 0.07 K/ L 0.01-0.08 (test code = 417) IMMATURE GRANULOCYTES-RELATIVE 2 % 0-1 H PERCENT (BEAKER) (test code = 2801) (MANUAL DIFFERENTIAL)2017-02-13 22:40:00 Test Item Value Reference Range Interpretation Comments NEUTROPHILS - REL (DIFF) (BEAKER) 72 % (test code = 1359) LYMPHOCYTES - REL (DIFF) (BEAKER) 13 % (test code = 1360) MONOCYTES - REL (DIFF) (BEAKER) 3 % (test code = 1361) EOSINOPHILS - REL (DIFF) (BEAKER) 4 % (test code = 1362) BASOPHILS - REL (DIFF) (BEAKER) 1 % (test code = 1363) BANDS - REL (DIFF) (BEAKER) (test 7 % 0-10 code = 1348) NEUTROPHILS - ABS (DIFF) (BEAKER) 15.48 K/ L 1.80-8.00 H (test code = 1365) LYMPHOCYTES - ABS (DIFF) (BEAKER) 2.80 K/ L 1.48-4.50 (test code = 1366) MONOCYTES - ABS (DIFF) (BEAKER) 0.65 K/ L 0.00-1.30 (test code = 1367) EOSINOPHILS - ABS (DIFF) (BEAKER) 0.86 K/ L 0.00-0.50 H (test code = 1368) BASOPHILS - ABS (DIFF) (BEAKER) 0.22 K/ L 0.00-0.20 H (test code = 1369) BANDS-ABS (DIFF) (BEAKER) (test 1.5 K/ L 0.0-0.8 H code = 1349) TOTAL COUNTED (BEAKER) (test code 100 = 1351) BANDS + SEGMENTED NEUTROPHILS 16.99 (BEAKER) (test code = 1352) WBC MORPHOLOGY (BEAKER) (test code Normal = 487) GIANT PLATELETS (BEAKER) (test Present code = 313) ANISOCYTOSIS (BEAKER) (test code = 1+ few 961) MACROCYTES (BEAKER) (test code = 1+ few 964) POCT-GLUCOSE [id number] 21:02:00 Test Item Value Reference Range Interpretation Comments POC-GLUCOSE METER 98 mg/dL 70-110 TESTED AT [facility] [address] (BEAKER) (test code = [place] [address] 1538) BLOOD GAS, [id number] 19:31:00 Test Item Value Reference Range Interpretation Comments PH ARTERIAL (BEAKER) (test code = 7.31 7.35-7.45 L 383) PCO2 ARTERIAL (BEAKER) (test code 41 mmHg 35-45 = 384) PO2 ARTERIAL (BEAKER) (test code 170 mmHg 80-90 H = 385) O2 SATURATION ARTERIAL (BEAKER) 99.0 % 96.0-97.0 H (test code = 386) HCO3 ARTERIAL (BEAKER) (test code 20 mmol/L 21-29 L = 388) BASE EXCESS ARTERIAL (BEAKER) -5.7 mmol/L -2.0-3.0 L (test code = 387) PATIENT TEMPERATURE (BEAKER) 36.8 C (test code = 1818) FIO2 (BEAKER) (test code = 1819) 40.0 % RAD, CHEST, 1 VIEW, NON [id number] 18:11:00Reason for exam:->Post ACBShould this be performed at the bedside?->YesFINAL REPORT INDICATION: Post ACB COMPARISON: None. TECHNIQUE: Chest radiograph, single view, portable technique. FINDINGS / IMPRESSION: Endotracheal tube terminates approximately 5 cm above the chris. Recommend advancing the tube 2 cm. 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 Right internal jugular line terminates in the low SVC. There is a single mediastinal tube and a single right chest tube. There is moderate enlargement cardiac silhouette. No apical cap or large hemothorax. No pneumothorax. No definite evidence of large aspiration or overtpulmonary edema. In summary, questionable malpositioned nasogastric tube (probably in the left airway). Moderate enlargement cardiac silhouette, representing cardiomegaly versus pericardial hematoma. Signed: Jesse Oneil MDReport Verified Date/Time: 02/13/2017 18:11:25 Reading Location: [facility] [id number] Consult Reading Room [id number] 17:58:00 Test Item Value Reference Range Interpretation Comments MAGNESIUM (BEAKER) 2.6 mg/dL 1.6-2.6 Specimen slightly (test code = 627) hemolyzed [id number] 17:58:00 Test Item Value Reference Range Interpretation Comments PHOSPHORUS (BEAKER) 3.1 mg/dL 2.3-4.7 Specimen slightly (test code = 604) hemolyzed BASIC METABOLIC [id number] 17:58:00 Test Item Value Reference Range Interpretation Comments SODIUM (BEAKER) 141 meq/L 136-145 (test code = 381) POTASSIUM (BEAKER) 3.0 meq/L 3.5-5.1 L Specimen slightly (test code = 379) hemolyzed CHLORIDE (BEAKER) 108 meq/L 98-107 H (test code = 382) CO2 (BEAKER) (test 23 meq/L 22-29 code = 355) BLOOD UREA NITROGEN 19 mg/dL 7-21 (BEAKER) (test code = 354) CREATININE (BEAKER) 1.15 mg/dL 0.57-1.25 Specimen slightly (test code = 358) hemolyzed GLUCOSE RANDOM 193 mg/dL 70-105 H (BEAKER) (test code = 652) CALCIUM (BEAKER) 8.6 mg/dL 8.4-10.2 (test code = 697) EGFR (BEAKER) (test 61 mL/min/1.73 ESTIMA AMANDA GFR IS code = 1092) sq m NOT ACCURATE CREATININE CLEARANCE IN PREDICTING GLOMERULAR FILTRATION RATE . ESTIMATED GFR I S NOT APPLICABLE FOR DIALYSIS PATIEN TS. LACTIC ACID, ARTERIAL, WHOLE [id number] 17:54:00 Test Item Value Reference Range Interpretation Comments LACTATE BLOOD 3.6 mmol/L 0.5-2.2 H Specimen sligh tly ARTERIAL (2) (BEAKER) hemoly zed (test code = 2874) Effective 09/29/2015: Units/Reference Range ChangeNew: 0.5-2.2 mmol/L Previous: 5-20 mg/[id number] 17:49:00 Test Item Value Reference Range Interpretation Comments PARTIAL THROMBOPLASTIN TIME 31.5 seconds 22.5-36.0 (BEAKER) (test code = 760) [id number] 17:49:00 Test Item Value Reference Range Interpretation Comments FIBRINOGEN LEVEL (BEAKER) (test 194 mg/dl 225-434 L code = 658) PROTHROMBIN [id number] 17:48:00 Test Item Value Reference Range Interpretation Comments PROTIME (BEAKER) (test code = 17.7 seconds 11.7-14.7 H 759) INR (BEAKER) (test code = 370) 1.5 <=5.9 RECOMMENDED COUMADIN/WARFARIN INR THERAPY RANGESSTANDARD DOSE: 2.0 - 3.0 Includes: PROPHYLAXIS forvenous thrombosis, systemic embolization; TREATMENT for venous thrombosis and/or pulmonary embolus.HIGH RISK: Target INR is 2.5-3.5 for patients with mechanical heart valves.OXYGEN SATURATION, [id number] 17:34:00 Test Item Value Reference Range Interpretation Comments O2 SATURATION (MEASURED) (BEAKER) 83.8 % (test code = 1455) SODIUM NA-STAT [id number] 17:25:00 Test Item Value Reference Range Interpretation Comments SODIUM (BEAKER) (test code = 381) 138 meq/L 135-148 CALCIUM, [id number] 17:25:00 Test Item Value Reference Range Interpretation Comments CALCIUM IONIZED (BEAKER) (test 1.16 mmol/L 1.12-1.27 code = 698) PH, BLOOD (BEAKER) (test code = 7.26 1810) BLOOD GAS, [id number] 17:25:00 Test Item Value Reference Range Interpretation Comments PH ARTERIAL (BEAKER) (test code = 7.26 7.35-7.45 L 383) PCO2 ARTERIAL (BEAKER) (test code 54 mmHg 35-45 H = 384) PO2 ARTERIAL (BEAKER) (test code 129 mmHg 80-90 H = 385) O2 SATURATION ARTERIAL (BEAKER) 98.1 % 96.0-97.0 H (test code = 386) HCO3 ARTERIAL (BEAKER) (test code 23 mmol/L 21-29 = 388) BASE EXCESS ARTERIAL (BEAKER) -4.3 mmol/L -2.0-3.0 L (test code = 387) PATIENT TEMPERATURE (BEAKER) 37.0 C (test code = 1818) FIO2 (BEAKER) (test code = 1819) 60.0 % POTASSIUM-STAT [id number] 17:25:00 Test Item Value Reference Range Interpretation Comments POTASSIUM (BEAKER) (test code = 2.8 meq/L 3.6-5.5 L 379) GLUCOSE-STAT [id number] 17:25:00 Test Item Value Reference Range Interpretation Comments GLUCOSE RANDOM (BEAKER) (test code 211 mg/dL 70-110 H = 652) HGB/HCT (H&H) - STAT [id number] 17:25:00 Test Item Value Reference Range Interpretation Comments HEMOGLOBIN (BEAKER) (test code = 12.2 g/dL 13.0-16.8 L 410) HEMATOCRIT (BEAKER) (test code = 36.0 % 40.0-50.0 L 411) [id number] 16:53:00 Test Item Value Reference Range Interpretation Comments ACTIVATED CLOTTING TIME 98 sec TEST ED AT [facility] [address] (BEAKER) (test code = [place] [address]) [id number] 16:53:00 Test Item Value Reference Range Interpretation Comments ACTIVATED CLOTTING TIME 345 sec TEST ED AT [place] [address] ([facility]) (test code = [place] [address]) [id number] 16:53:00 Test Item Value Reference Range Interpretation Comments ACTIVATED CLOTTING TIME 417 sec TEST ED AT [place] [address] ([facility]) (test code = [place] [address]) [id number] 16:53:00 Test Item Value Reference Range Interpretation Comments ACTIVATED CLOTTING TIME 400 sec TEST ED AT [place] [address] ([facility]) (test code = RESHMA Elise [facility] [address]) [id number] THROMBOELASTOGRAPH (TEG)2017-02-13 16:34:00 Test Item Value Reference Range Interpretation Comments TEG ACTIVATED CLOTTING TIME 5.5 minutes 4.0-7.0 (BEAKER) (test code = 1407) TEG FIBRINOGEN ACTIVITY (BEAKER) 66.2 degrees 61.0-73.0 (test code = 1408) TEG PLT. AGGREGATION (BEAKER) 46.8 MM 55.0-65.0 L (test code = 1409) TGH ACTIVATED CLOTTING TIME 5.6 minutes 4.0-7.0 (BEAKER) (test code = 1411) TGH FIBRINOGEN ACTIVITY (BEAKER) 67.7 degrees 61.0-73.0 (test code = 1412) TGH PLT. AGGREGATION (BEAKER) 49.0 MM 55.0-65.0 L (test code = 1413) [id number] 16:22:00 Test Item Value Reference Range Interpretation Comments PARTIAL THROMBOPLASTIN TIME 32.6 seconds 22.5-36.0 (BEAKER) (test code = 760) [id number] 16:22:00 Test Item Value Reference Range Interpretation Comments FIBRINOGEN LEVEL (BEAKER) (test 181 mg/dl 225-434 L code = 658) PROTHROMBIN [id number] 16:20:00 Test Item Value Reference Range Interpretation Comments PROTIME (BEAKER) (test code = 19.3 seconds 11.7-14.7 H 759) INR (BEAKER) (test code = 370) 1.6 <=5.9 RECOMMENDED COUMADIN/WARFARIN INR THERAPY RANGESSTANDARD DOSE: 2.0 - 3.0 Includes: PROPHYLAXIS forvenous thrombosis, systemic embolization; TREATMENT for venous thrombosis and/or pulmonary embolus.HIGH RISK: Target INR is 2.5-3.5 for patients with mechanical heart valves.PLATELET [id number] 16:13:00 Test Item Value Reference Range Interpretation Comments PLATELET COUNT (BEAKER) (test code 92 K/CU MM 150-450 L = 756) BLOOD GAS, [id number] 15:58:00 Test Item Value Reference Range Interpretation Comments PH ARTERIAL (BEAKER) (test code = 7.35 7.35-7.45 383) PCO2 ARTERIAL (BEAKER) (test code 46 mmHg 35-45 H = 384) PO2 ARTERIAL (BEAKER) (test code 385 mmHg 80-90 H = 385) O2 SATURATION ARTERIAL (BEAKER) 99.8 % 96.0-97.0 H (test code = 386) HCO3 ARTERIAL (BEAKER) (test code 25 mmol/L 21-29 = 388) BASE EXCESS ARTERIAL (BEAKER) -1.3 mmol/L -2.0-3.0 (test code = 387) PATIENT TEMPERATURE (BEAKER) 35.4 C (test code = 1818) FIO2 (BEAKER) (test code = 1819) 97.0 % GLUCOSE-STAT [id number] 15:58:00 Test Item Value Reference Range Interpretation Comments GLUCOSE RANDOM (BEAKER) (test code 157 mg/dL 70-110 H = 652) HGB/HCT (H&H) - STAT [id number] 15:58:00 Test Item Value Reference Range Interpretation Comments HEMOGLOBIN (BEAKER) (test code = 10.5 g/dL 13.0-16.8 L 410) HEMATOCRIT (BEAKER) (test code = 31.0 % 40.0-50.0 L 411) CALCIUM, [id number] 15:58:00 Test Item Value Reference Range Interpretation Comments CALCIUM IONIZED (BEAKER) (test 1.16 mmol/L 1.12-1.27 code = 698) PH, BLOOD (BEAKER) (test code = 7.33 1810) SODIUM NA-STAT [id number] 15:57:00 Test Item Value Reference Range Interpretation Comments SODIUM (BEAKER) (test code = 381) 136 meq/L 135-148 POTASSIUM-STAT [id number] 15:57:00 Test Item Value Reference Range Interpretation Comments POTASSIUM (BEAKER) (test code = 3.7 meq/L 3.6-5.5 379) SODIUM NA-STAT [id number] 15:18:00 Test Item Value Reference Range Interpretation Comments SODIUM (BEAKER) (test code = 381) 136 meq/L 135-148 POTASSIUM-STAT [id number] 15:18:00 Test Item Value Reference Range Interpretation Comments POTASSIUM (BEAKER) (test code = 4.1 meq/L 3.6-5.5 379) BLOOD GAS, [id number] 15:18:00 Test Item Value Reference Range Interpretation Comments PH ARTERIAL (BEAKER) (test code = 7.38 7.35-7.45 383) PCO2 ARTERIAL (BEAKER) (test code 43 mmHg 35-45 = 384) PO2 ARTERIAL (BEAKER) (test code 258 mmHg 80-90 H = 385) O2 SATURATION ARTERIAL (BEAKER) 99.6 % 96.0-97.0 H (test code = 386) HCO3 ARTERIAL (BEAKER) (test code 26 mmol/L 21-29 = 388) BASE EXCESS ARTERIAL (BEAKER) -0.2 mmol/L -2.0-3.0 (test code = 387) PATIENT TEMPERATURE (BEAKER) 33.4 C (test code = 1818) FIO2 (BEAKER) (test code = 1819) 65.0 % GLUCOSE-STAT [id number] 15:18:00 Test Item Value Reference Range Interpretation Comments GLUCOSE RANDOM (BEAKER) (test code 142 mg/dL 70-110 H = 652) HGB/HCT (H&H) - STAT [id number] 15:18:00 Test Item Value Reference Range Interpretation Comments HEMOGLOBIN (BEAKER) (test code = 10.8 g/dL 13.0-16.8 L 410) HEMATOCRIT (BEAKER) (test code = 32.0 % 40.0-50.0 L 411) BLOOD GAS, [id number] 14:57:00 Test Item Value Reference Range Interpretation Comments PH ARTERIAL (BEAKER) (test code = 7.42 7.35-7.45 383) PCO2 ARTERIAL (BEAKER) (test code 37 mmHg 35-45 = 384) PO2 ARTERIAL (BEAKER) (test code 289 mmHg 80-90 H = 385) O2 SATURATION ARTERIAL (BEAKER) 99.7 % 96.0-97.0 H (test code = 386) HCO3 ARTERIAL (BEAKER) (test code 26 mmol/L 21-29 = 388) BASE EXCESS ARTERIAL (BEAKER) -0.9 mmol/L -2.0-3.0 (test code = 387) PATIENT TEMPERATURE (BEAKER) 28.2 C (test code = 1818) FIO2 (BEAKER) (test code = 1819) 65.0 % HGB/HCT (H&H) - STAT [id number] 14:57:00 Test Item Value Reference Range Interpretation Comments HEMOGLOBIN (BEAKER) (test code = 10.3 g/dL 13.0-16.8 L 410) HEMATOCRIT (BEAKER) (test code = 30.0 % 40.0-50.0 L 411) GLUCOSE-STAT [id number] 14:56:00 Test Item Value Reference Range Interpretation Comments GLUCOSE RANDOM (BEAKER) (test code 107 mg/dL 70-110 = 652) SODIUM NA-STAT [id number] 14:56:00 Test Item Value Reference Range Interpretation Comments SODIUM (BEAKER) (test code = 381) 136 meq/L 135-148 POTASSIUM-STAT [id number] 14:56:00 Test Item Value Reference Range Interpretation Comments POTASSIUM (BEAKER) (test code = 3.6 meq/L 3.6-5.5 379) BLOOD GAS, [id number] 14:04:00 Test Item Value Reference Range Interpretation Comments PH ARTERIAL (BEAKER) (test code = 7.40 7.35-7.45 383) PCO2 ARTERIAL (BEAKER) (test code 45 mmHg 35-45 = 384) PO2 ARTERIAL (BEAKER) (test code = 479 mmHg 80-90 H 385) O2 SATURATION ARTERIAL (BEAKER) 99.9 % 96.0-97.0 H (test code = 386) HCO3 ARTERIAL (BEAKER) (test code 28 mmol/L 21-29 = 388) BASE EXCESS ARTERIAL (BEAKER) 2.1 mmol/L -2.0-3.0 (test code = 387) PATIENT TEMPERATURE (BEAKER) (test 35.6 C code = 1818) FIO2 (BEAKER) (test code = 1819) 96.0 % GLUCOSE-STAT [id number] 13:59:00 Test Item Value Reference Range Interpretation Comments GLUCOSE RANDOM (BEAKER) (test code = 96 mg/dL 70-110 652) SODIUM NA-STAT [id number] 13:59:00 Test Item Value Reference Range Interpretation Comments SODIUM (BEAKER) (test code = 381) 141 meq/L 135-148 POTASSIUM-STAT [id number] 13:59:00 Test Item Value Reference Range Interpretation Comments POTASSIUM (BEAKER) (test code = 3.8 meq/L 3.6-5.5 379) HGB/HCT (H&H) - STAT [id number] 13:59:00 Test Item Value Reference Range Interpretation Comments HEMOGLOBIN (BEAKER) (test code = 13.5 g/dL 13.0-16.8 410) HEMATOCRIT (BEAKER) (test code = 40.0 % 40.0-50.0 411) HEMOGLOBIN [id number] 14:31:00 Test Item Value Reference Range Interpretation Comments HEMOGLOBIN A1C (BEAKER) (test code = 5.1 % 4.3-6.1 368) BASIC METABOLIC [id number] 14:08:00 Test Item Value Reference Range Interpretation Comments SODIUM (BEAKER) 140 meq/L 136-145 (test code = 381) POTASSIUM (BEAKER) 4.0 meq/L 3.5-5.1 (test code = 379) CHLORIDE (BEAKER) 106 meq/L 98-107 (test code = 382) CO2 (BEAKER) (test 27 meq/L 22-29 code = 355) BLOOD UREA NITROGEN 24 mg/dL 7-21 H (BEAKER) (test code = 354) CREATININE (BEAKER) 1.17 mg/dL 0.57-1.25 (test code = 358) GLUCOSE RANDOM 99 mg/dL 70-105 (BEAKER) (test code = 652) CALCIUM (BEAKER) 9.4 mg/dL 8.4-10.2 (test code = 697) EGFR (BEAKER) (test 60 mL/min/1.73 ESTIMA AMANDA GFR IS code = 1092) sq m NOT ACCURATE CREATININE CLEARANCE IN PREDICTING GLOMERULAR FILTRATION RATE . ESTIMATED GFR I S NOT APPLICABLE FOR DIALYSIS PATIEN TS. PROTHROMBIN [id number] 13:42:00 Test Item Value Reference Range Interpretation Comments PROTIME (BEAKER) (test code = 14.7 seconds 11.7-14.7 759) INR (BEAKER) (test code = 370) 1.2 <=5.9 RECOMMENDED COUMADIN/WARFARIN INR THERAPY RANGESSTANDARD DOSE: 2.0 - 3.0 Includes: PROPHYLAXIS forvenous thrombosis, systemic embolization; TREATMENT for venous thrombosis and/or pulmonary embolus.HIGH RISK: Target INR is 2.5-3.5 for patients with mechanical heart valves.CBC W/PLT COUNT & AUTO DIFFERENTIAL 2017-02-12 13:38:00 Test Item Value Reference Range Interpretation Comments WHITE BLOOD CELL COUNT (BEAKER) 6.6 K/ L 3.5-10.5 (test code = 775) RED BLOOD CELL COUNT (BEAKER) 4.17 M/ L 4.63-6.08 L (test code = 761) HEMOGLOBIN (BEAKER) (test code = 13.7 GM/DL 13.7-17.5 410) HEMATOCRIT (BEAKER) (test code = 41.3 % 40.1-51.0 411) MEAN CORPUSCULAR VOLUME (BEAKER) 99.0 fL 79.0-92.2 H (test code = 753) MEAN CORPUSCULAR HEMOGLOBIN 32.9 pg 25.7-32.2 H (BEAKER) (test code = 751) MEAN CORPUSCULAR HEMOGLOBIN CONC 33.2 GM/DL 32.3-36.5 (BEAKER) (test code = 752) RED CELL DISTRIBUTION WIDTH 13.8 % 11.6-14.4 (BEAKER) (test code = 412) PLATELET COUNT (BEAKER) (test 160 K/CU MM 150-450 code = 756) MEAN PLATELET VOLUME (BEAKER) 9.3 fL 9.4-12.4 L (test code = 754) NUCLEATED RED BLOOD CELLS 0 /100 WBC 0-0 (BEAKER) (test code = 413) NEUTROPHILS RELATIVE PERCENT 69 % (BEAKER) (test code = 429) LYMPHOCYTES RELATIVE PERCENT 17 % (BEAKER) (test code = 430) MONOCYTES RELATIVE PERCENT 8 % (BEAKER) (test code = 431) EOSINOPHILS RELATIVE PERCENT 6 % (BEAKER) (test code = 432) BASOPHILS RELATIVE PERCENT 1 % (BEAKER) (test code = 437) NEUTROPHILS ABSOLUTE COUNT 4.49 K/ L 1.78-5.38 (BEAKER) (test code = 670) LYMPHOCYTES ABSOLUTE COUNT 1.09 K/ L 1.32-3.57 L (BEAKER) (test code = 414) MONOCYTES ABSOLUTE COUNT (BEAKER) 0.51 K/ L 0.30-0.82 (test code = 415) EOSINOPHILS ABSOLUTE COUNT 0.37 K/ L 0.04-0.54 (BEAKER) (test code = 416) BASOPHILS ABSOLUTE COUNT (BEAKER) 0.04 K/ L 0.01-0.08 (test code = 417) IMMATURE GRANULOCYTES-RELATIVE 1 % 0-1 PERCENT (BEAKER) (test code = 2801)
[2020-03-16 17:52] LABS: Absolute Lymphocytes (CBC) 0.7 K/uL (0.7-4.9); Basophils % 0.4 % (0-1.3); Hematocrit 45.4 % (39.6-49.0); MPV 8.3 fL (7.6-11.3); RBC Red Blood Cell Count 4.57 M/uL (4.33-5.43)
[2020-03-16] MEDS ORDERED: FENTANYL CITR 100 MCG/2 ML ONE (17:59)
[2020-03-16] MEDS ORDERED: NA CHLORIDE 0.9% 1,000 ML ONE (17:59)
[2020-03-16 18:07] LABS: Potassium 3.8 mmol/L (3.5-5.1)
--- NOTE | 2020-03-16 19:09 | RAD REPORT ---
EXAM DESCRIPTION: CT - Angio Aorta For Dissection - 03/16/2020 6:43 pm CLINICAL HISTORY: . Chest, abdominal and back pain COMPARISON: None TECHNIQUE: Computed tomography angiography of the chest, abdomen pelvis were obtained. 100 cc Isovue 370 was administered intravenously. Coronal and sagittal reconstruction were performed. MIP 3D reconstruction was performed All CT scans are performed using dose optimization technique as appropriate and may include automated exposure control or mA/KV adjustment according to patient size. FINDINGS: An aortic dissection is not seen. The root of the ascending aorta measures 4.8 centimeter s AP diameter. The celiac, SMA and NANDO are patent . 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 Left internal iliac artery measures 1.5 centimeters containing mild thrombus A lung consolidation is not present. Mild to moderate predominantly subpleural interstitial right mari g opacities. Mild predominantly subpleural interstitial opacities left lung. These lung opacities luis angel ear chronic A pericardial effusion is not seen. A pleural effusion is not noted. The liver,spleen, pancreas adrenals and right kidney demonstrate no significant abnormality. 7.7 centimeter partially necrotic left renal mass. Parapelvic and cortical bilateral renal cysts. Spondylosis involves lumbar spine resulting in spinal stenosis. Colonic diverticulosis without eviden ce of diverticulitis. Mild compression deformities involve L1 and L2 vertebral bodies IMPRESSION: Negative for an aortic dissection. 4.8 centimeter ascending thoracic aortic aneurysm 7.7 centimeter left renal mass likely neoplasm Mild compression deformity involves the L1 vertebral body. The age is indeterminate but has a more ch ronic than acute appearance Mild compression deformity involving the L2 vertebral body has more of an acute/subacute appearance t hat chronic.
--- NOTE | 2020-03-16 19:20 | ER ---
Nurse's Notes [facility] Name: Phu Barron Sr Age: 84 yrs Sex: Male : 1935 Arrival Date: 03/16/2020 Time: 17:16 Bed 16 Private MD: Tyshawn Doan R Diagnosis: Thoracic aortic aneurysm, without rupture;Kidney mass;Wedge compression fracture of first lumbar vertebra;Wedge compression fracture of second lumbar vertebra Presentation: 03/16 17:21 Chief complaint: Low back pain 03/06 after liifting a cabinet 4 days ago. Also c/o ll1 generalized weakness and anorexia. Coronavirus screen: At this time, the client does not indicate any symptoms associated with coronavirus-19. Ebola Screen: No symptoms or risks identified at this time. Initial Sepsis Screen: Does the patient meet any 2 criteria? No. Patient's initial sepsis screen is negative. Does the patient have a suspected source of infection? No. Patient's initial sepsis screen is negative. Risk Assessment: Do you want to hurt yourself or someone else? Patient reports no desire to harm self or others. Onset of symptoms was March 12, 2020. 17:21 Method Of Arrival: Wheelchair ll1 17:21 Acuity: CHANTAL 3 ll1 Historical: - Allergies: 17:24 No Known Allergies; ll1 - PMHx: 17:24 High Cholesterol; Hypertension; ll1 - PSHx: 17:24 Heart Surgery; ll1 - Immunization history:: Adult Immunizations up to date. - Social history:: Smoking status: Patient denies any tobacco usage or history of. Screenin:59 Abuse screen: Denies threats or abuse. Denies injuries from another. Nutritional ss screening: No deficits noted. Tuberculosis screening: Never had TB. Fall Risk None identified. Assessment: 17:28 Reassessment: Warm blanket given. ss 17:59 General: Appears in no apparent distress. comfortable, Behavior is calm, cooperative. ss Pain: Complains of pain in lumbar area, left low back and right low back Pain currently is 3 out of 10 on a pain scale. at worst was 10 out of 10 on a pain scale. Quality of pain is described as aching, pinching, Pain began 5 days ago Is continuous, Aggravated by repositioning, weight bearing. Neuro: Level of Consciousness is awake, alert, obeys commands, Oriented to person, place, time, situation. Cardiovascular: Capillary refill < 3 seconds is brisk in bilateral fingers Patient's skin is warm and dry. Respiratory: Airway is patent Respiratory effort is even, unlabored, Respiratory pattern is regular, symmetrical. GI: Patient currently denies abdominal pain, diarrhea, nausea, vomiting. : No signs and/or symptoms were reported regarding the genitourinary system. Denies burning with urination, urinary frequency. EENT: Oral mucosa is moist. Derm: Skin is intact, is healthy with good turgor, Skin is dry, Skin is pink, warm \T\ dry. normal. Musculoskeletal: Circulation, motion, and sensation intact. Range of motion: intact in all extremities, Swelling absent. 18:23 Reassessment: Patient appears in no apparent distress at this time. Patient and/or ss family updated on plan of care and expected duration. Pain level reassessed. pillow given. Pt reports pain is minimal right now because he is laying flat. 18:34 Reassessment: PT to CT now. ss 18:54 Reassessment: Back from CT. Awaiting results. Daughter remains at bedside. Pt appears ss comfortable. States his pain is good as long as he is laying flat in the bed. 19:15 General: Appears in no apparent distress. Behavior is calm, cooperative. Neuro: Level ea of Consciousness is awake, alert, obeys commands, Oriented to person, place, time, situation. Cardiovascular: Patient's skin is warm and dry. Respiratory: Airway is patent Respiratory effort is even, unlabored, Respiratory pattern is regular, symmetrical. Derm: Skin is pink, warm \T\ dry. 20:11 Reassessment: Patient and/or family updated on plan of care and expected duration. Pain ea level reassessed. Patient is alert, oriented x 3, equal unlabored respirations, skin warm/dry/pink. Discharge instruction given to patient, verbalized the understaging of instruction. Vital Signs: 17:21 BP 126 / 76; Pulse 82; Resp 16; Temp 97.8; Pulse Ox 98% ; Weight 94.35 kg (M); Height 6 ll1 ft. 4 in. (193.04 cm); Pain 10/10; 17:48 BP 144 / 72 LA; Pulse 67; ss 17:48 BP 145 / 74; Pulse 63 RA; ss 19:45 BP 130 / 70; Pulse 68; Resp 18; Pulse Ox 98% ; ea 17:21 Body Mass Index 25.32 (94.35 kg, 193.04 cm) ll1 ED Course: 17:16 Patient arrived in ED. ag5 17:17 Tyshawn Doan MD is Private Physician. ag5 17:23 Triage completed. ll1 17:24 Arm band placed on. ll1 17:28 Agatha Terrazas F[facility]-C [facility]. snw 17:28 Hao Pastrana MD is Attending Physician. snw 17:32 Trudy Mooney, RALPH is Primary Nurse. ss 17:32 No provider procedures requiring assistance completed. Inserted saline lock: 20 gauge ss in left antecubital area, using aseptic technique. Blood collected. 17:59 Patient has correct armband on for positive identification. Bed in low position. Call ss light in reach. Side rails up X 1. Adult w/ patient. Pulse ox on. NIBP on. Warm blanket given. 18:43 CT Aorta for Dissection In Process Unspecified. EDMS 19:18 Tyshawn Doan MD is Referral Physician. snw 19:19 Jessi Sánchez MD is Referral Physician. snw 20:11 IV discontinued, intact, bleeding controlled, No redness/swelling at site. Pressure ea dressing applied. Administered Medications: 17:55 Drug: NS 0.9% 1000 ml Route: IV; Rate: 75 ml/hr; Site: left antecubital; ss 17:56 Drug: fentaNYL (PF) 25 mcg Route: IVP; Site: left antecubital; ss 18:23 Follow up: Response: No adverse reaction; Pain is decreased ss 18:23 Drug: NS 0.9% 500 ml Route: IV; Rate: bolus; Site: left antecubital; ss Outcome: 19:20 Discharge ordered by . snw 20:10 Discharged to home via wheelchair, with family. ea 20:10 Condition: stable 20:10 Discharge instructions given to patient, family, Instructed on discharge instructions, follow up and referral plans. medication usage, Demonstrated understanding of instructions, follow-up care, medications, Prescriptions given X 2. 20:11 Patient left the ED. ea Signatures: Dispatcher [employer] EDPR Agatha Terrazas FNP-C LEAD IOS DEVELOPER-Csnw Trudy Mooney, RN RN ss Doreen Munoz, RN RN ea Redd Francis ag5 Sincere Collins RN RN ll1
--- NOTE | 2020-03-16 19:20 | EDPHYS ---
Physician Documentation [facility] Name: Phu Barron Sr Age: 84 yrs Sex: Male : 1935 Arrival Date: 03/16/2020 Time: 17:16 Bed 16 Private MD: Tyshawn Doan R ED Physician Hao Pastrana HPI: 03/16 18:22 This 84 yrs old Male presents to ER via Wheelchair with complaints of Back snw Pain. 18:22 The patient presents with pain that is acute. The symptoms are located in the low back. snw Onset: The symptoms/episode began/occurred suddenly, 4 day(s) ago, and became persistent. The pain does not radiate. Associated signs and symptoms: Pertinent positives: anorexia and diarrhea. The problem was sustained when bending over, when lifting heavy object. Severity of symptoms: At their worst the symptoms were moderate. The patient has not experienced similar symptoms in the past. The patient has not recently seen a physician. Historical: - Allergies: 17:24 No Known Allergies; ll1 - PMHx: 17:24 High Cholesterol; Hypertension; ll1 - PSHx: 17:24 Heart Surgery; ll1 - Immunization history:: Adult Immunizations up to date. - Social history:: Smoking status: Patient denies any tobacco usage or history of. ROS: 18:21 Constitutional: Negative for fever, chills, and weight loss, Eyes: Negative for injury, snw pain, redness, and discharge, ENT: Negative for injury, pain, and discharge, Neck: Negative for injury, pain, and swelling, Cardiovascular: Negative for chest pain, palpitations, and edema, Respiratory: Negative for shortness of breath, cough, wheezing, and pleuritic chest pain, Abdomen/GI: Negative for abdominal pain, nausea, vomiting, diarrhea, and constipation, : Negative for injury, bleeding, discharge, and swelling, MS/Extremity: Negative for injury and deformity, Skin: Negative for injury, rash, and discoloration, Neuro: Negative for headache, weakness, numbness, tingling, and seizure. 18:21 Back: Positive for pain on standing after hearing a pop in low back while lifting a heavy object. Exam: 18:17 Constitutional: This is a well developed, well nourished patient who is awake, alert, snw and in no acute distress. Head/Face: Normocephalic, atraumatic. Eyes: Pupils equal round and reactive to light, extra-ocular motions intact. Lids and lashes normal. Conjunctiva and sclera are non-icteric and not injected. Cornea within normal limits. Periorbital areas with no swelling, redness, or edema. ENT: Nares patent. No nasal discharge, no septal abnormalities noted. Tympanic membranes are normal and external auditory canals are clear. Oropharynx with no redness, swelling, or masses, exudates, or evidence of obstruction, uvula midline. Mucous membranes moist. Neck: Trachea midline, no thyromegaly or masses palpated, and no cervical lymphadenopathy. Supple, full range of motion without nuchal rigidity, or vertebral point tenderness. No Meningismus. Chest/axilla: Normal chest wall appearance and motion. Nontender with no deformity. No lesions are appreciated. Cardiovascular: Regular rate and rhythm with a normal S1 and S2. No gallops, murmurs, or rubs. Normal PMI, no JVD. No pulse deficits. Respiratory: Lungs have equal breath sounds bilaterally, clear to auscultation and percussion. No rales, rhonchi or wheezes noted. No increased work of breathing, no retractions or nasal flaring. Abdomen/GI: Soft, non-tender, with normal bowel sounds. No distension or tympany. No guarding or rebound. No evidence of tenderness throughout. Skin: Warm, dry with normal turgor. Normal color with no rashes, no lesions, and no evidence of cellulitis. MS/ Extremity: Pulses equal, no cyanosis. Neurovascular intact. Full, normal range of motion. Neuro: Awake and alert, GCS 15, oriented to person, place, time, and situation. Cranial nerves II-XII grossly intact. Motor strength 5/5 in all extremities. Sensory grossly intact. Cerebellar exam normal. Normal gait. Psych: Awake, alert, with orientation to person, place and time. Behavior, mood, and affect are within normal limits. 18:17 Back: pain, that is moderate, that is severe, of the lumbar area, ROM is painless, vertebral tenderness, is appreciated at L3, muscle spasm, is appreciated in the low back area, pain with weight bearing. Vital Signs: 17:21 BP 126 / 76; Pulse 82; Resp 16; Temp 97.8; Pulse Ox 98% ; Weight 94.35 kg (M); Height 6 ll1 ft. 4 in. (193.04 cm); Pain 10/10; 17:48 BP 144 / 72 LA; Pulse 67; ss 17:48 BP 145 / 74; Pulse 63 RA; ss 19:45 BP 130 / 70; Pulse 68; Resp 18; Pulse Ox 98% ; ea 17:21 Body Mass Index 25.32 (94.35 kg, 193.04 cm) ll1 MDM: 17:31 Patient medically screened. snw 19:22 Data reviewed: vital signs, nurses notes. Data interpreted: Pulse oximetry: on is 98 %. snw Interpretation: normal. Counseling: I had a detailed discussion with the patient and/or guardian regarding: the historical points, exam findings, and any diagnostic results supporting the discharge/admit diagnosis, the presence of at least one elevated blood pressure reading (>120/80) during this emergency department visit, lab results, radiology results, the need for outpatient follow up, for definitive care, to return to the emergency department if symptoms worsen or persist or if there are any questions or concerns that arise at home. Special discussion: Based on the history and exam findings, there is no indication for further emergent testing or inpatient evaluation. I discussed with the patient/guardian the need to see the blending tank tender helper for further evaluation of the symptoms. I discussed with the patient/guardian the need to see the harness maker/oncologist for further evaluation of the symptoms. I discussed with the patient/guardian the need to see the primary care provider for further evaluation of the symptoms. I discussed with the patient/guardian the need to see the urologist for further evaluation of the symptoms. 03/16 17:31 Order name: CBC with Diff; Complete Time: 17:56 snw 03/16 17:31 Order name: Chem 7; Complete Time: 18:15 snw 03/16 17:31 Order name: CT Aorta for Dissection; Complete Time: 19:11 snw 03/16 17:34 Order name: Bilateral blood pressure; Complete Time: 17:56 snw Administered Medications: 17:55 Drug: NS 0.9% 1000 ml Route: IV; Rate: 75 ml/hr; Site: left antecubital; ss 17:56 Drug: fentaNYL (PF) 25 mcg Route: IVP; Site: left antecubital; 18:23 Follow up: Response: No adverse reaction; Pain is decreased ss 18:23 Drug: NS 0.9% 500 ml Route: IV; Rate: bolus; Site: left antecubital; ss Disposition: 03/17 06:31 Co-signature as Attending Physician, Hao Pastrana MD I agree with the assessment and kdr plan of care. Disposition: 03/16/20 19:20 Discharged to Home. Impression: Thoracic aortic aneurysm, without rupture, Kidney mass, Wedge compression fracture of first lumbar vertebra, Wedge compression fracture of second lumbar vertebra. - Condition is Stable. - Discharge Instructions: Thoracic Aortic Aneurysm, Spinal Compression Fracture, Percutaneous Kidney Biopsy, Renal Mass, Percutaneous Kidney Biopsy, Care After. - Prescriptions for Ultram 50 mg Oral Tablet - take 1 tablet by ORAL route every 6 hours As needed; 12 tablet. Zofran 4 mg Oral Tablet - take 1 tablet by ORAL route every 12 hours As needed; 15 tablet. - Medication Reconciliation Form, Thank You Letter, Antibiotic Education, Prescription Opioid Use form. - Follow up: Tyshawn Doan MD; When: Tomorrow; Reason: Recheck today's complaints, Continuance of care, Re-evaluation by your physician. Follow up: Emergency Department; When: As needed; Reason: Worsening of condition. Follow up: Jessi Sánchez MD; When: 1 week; Reason: Recheck today's complaints, Continuance of care, Re-evaluation by your physician. Signatures: Dispatcher [employer] EDAR Hao Pastrana MD MD kdr Waters, Shelly, DIAMOND SANDER-C DIAMOND SANDER-Csnw Trudy Mooney RN RN ss Antunez, Elena, RN RN ea Lewis, Lynsay, RN RN ll1 Corrections: (The following items were deleted from the chart) 03/16 20:11 19:20 03/16/2020 19:20 Discharged to Home. Impression: Thoracic aortic aneurysm, ea without rupture; Kidney mass; Wedge compression fracture of first lumbar vertebra; Wedge compression fracture of second lumbar vertebra. Condition is Stable. Forms are Medication Reconciliation Form, Thank You Letter, Antibiotic Education, Prescription Opioid Use. Follow up: Tyshawn Doan; When: Tomorrow; Reason: Recheck today's complaints, Continuance of care, Re-evaluation by your physician. Follow up: Emergency Department; When: As needed; Reason: Worsening of condition. Follow up: Jessi Peters; When: 1 week; Reason: Recheck today's complaints, Continuance of care, Re-evaluation by your physician. snw
[2020-03-16 20:49] VITALS: TEMP 97.8; O2SAT 98
[2020-03-16 20:50] VITALS: BP 145/74
== END 2020-03-16 20:11 | disposition home or self-care (01) ==
LOC: ER 17:13
DX: S32.010A Wedge compression fracture of first lumbar vertebra, initial encounter for closed fracture (principal); S32.020A Wedge compression fracture of second lumbar vertebra, initial encounter for closed fracture; I71.2 Thoracic aortic aneurysm, without rupture; N28.89 Other specified disorders of kidney and ureter; X50.0XXA Overexertion from strenuous movement or load, initial encounter; Y93.89 Activity, other specified; Y92.9 Unspecified place or not applicable; I10 Essential (primary) hypertension
CPT/HCPCS: 85025; 80048; 36415; 71275; 74175; Q9967; J3010; J7030; 96374; 99284

== ENCOUNTER 2021-04-01 15:51 | Emergency (ER) | payer OTHER ==
--- NOTE | 2021-04-01 17:11 | EDPHYS ---
Physician Documentation [facility] Name: Phu Barron Sr Age: 85 yrs Sex: Male : 1935 Arrival Date: 04/01/2021 Time: 15:56 Bed 2 Private MD: Tyshawn Doan R ED Physician Jazlyn Lacy HPI: 04/01 17:03 This 85 yrs old Male presents to ER via Ambulatory with complaints of Dog ma2 Bite. 17:03 The patient was bitten on the buttocks and right leg. Onset: The symptoms/episode ma2 began/occurred suddenly, 5 day(s) ago. Associated signs and symptoms: Pertinent negatives: fever, motor deficit, pain at site, swelling at site. Severity of symptoms: At their worst the symptoms were very mild, in the emergency department the symptoms have improved. The patient has not experienced similar symptoms in the past. was attached by a dog while biking 5 days ago. here because he needs a report for the police. he does not want any treatment or antibiotcs. 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 - Social history:: Smoking status: Patient denies any tobacco usage or history of. Patient/guardian denies using alcohol, street drugs, The patient lives with family. - Family history:: not pertinent. ROS: 17:03 Constitutional: Negative for fever, chills, and weight loss. ma2 17:03 All other systems are negative. Exam: 17:03 Constitutional: This is a well developed, well nourished patient who is awake, alert, ma2 and in no acute distress. Head/Face: Normocephalic, atraumatic. Eyes: Pupils equal round and reactive to light, extra-ocular motions intact. Lids and lashes normal. Conjunctiva and sclera are non-icteric and not injected. Cornea within normal limits. Periorbital areas with no swelling, redness, or edema. ENT: Nares patent. No nasal discharge, no septal abnormalities noted. Tympanic membranes are normal and external auditory canals are clear. Oropharynx with no redness, swelling, or masses, exudates, or evidence of obstruction, uvula midline. Mucous membranes moist. Neck: Trachea midline, no thyromegaly or masses palpated, and no cervical lymphadenopathy. Supple, full range of motion without nuchal rigidity, or vertebral point tenderness. No Meningismus. Chest/axilla: Normal chest wall appearance and motion. Nontender with no deformity. No lesions are appreciated. Cardiovascular: Regular rate and rhythm with a normal S1 and S2. No gallops, murmurs, or rubs. Normal PMI, no JVD. No pulse deficits. Respiratory: Lungs have equal breath sounds bilaterally, clear to auscultation and percussion. No rales, rhonchi or wheezes noted. No increased work of breathing, no retractions or nasal flaring. Abdomen/GI: Soft, non-tender, with normal bowel sounds. No distension or tympany. No guarding or rebound. No evidence of tenderness throughout. Back: No spinal tenderness. No costovertebral tenderness. Full range of motion. Skin: Warm, dry with normal turgor. Normal color with no rashes, no lesions, and no evidence of cellulitis. MS/ Extremity: 3 puncture wounds one on right lateral leg and 2 on left upper thigh, all superficial, dry with no induration. Pulses equal, no cyanosis. Neurovascular intact. Full, normal range of motion. Neuro: Awake and alert, GCS 15, oriented to person, place, time, and situation. Cranial nerves II-XII grossly intact. Motor strength 5/5 in all extremities. Sensory grossly intact. Cerebellar exam normal. Normal gait. Vital Signs: 16:21 BP 141 / 68; Pulse 64; Resp 16; Temp 98.1; Pulse Ox 100% ; Weight 81.65 kg; Height 6 vg1 ft. 4 in. (193.04 cm); Pain 0/10; 17:45 BP 145 / 71; Pulse 65; Resp 17; Temp 98.2; Pulse Ox 100% ; bp 16:21 Body Mass Index 21.91 (81.65 kg, 193.04 cm) vg1 MDM: 16:55 Patient medically screened. ma2 17:03 Differential diagnosis: superficial laceration, superficial puncture wound, recomends ma2 antibiotics however patient want to call his pcp and get a prescreption if it get worse by tomorrow. he understands all risk and benefits.. Data reviewed: vital signs, nurses notes. Counseling: I had a detailed discussion with the patient and/or guardian regarding: the historical points, exam findings, and any diagnostic results supporting the discharge/admit diagnosis, the presence of at least one elevated blood pressure reading (>120/80) during this emergency department visit, the need for outpatient follow up. Response to treatment: the patient's symptoms have markedly improved after treatment. Administered Medications: 17:32 Drug: Tetanus-Diphtheria Toxoid Adult 0.5 ml {Feeder Operator: [employer]. Exp: bp 10/08/2022. Lot #: [id number]. } Route: IM; Site: right deltoid; 17:33 Follow up: Response: No adverse reaction bp Disposition Summary: 04/01/21 17:11 Discharge Ordered Location: Home ma2 Condition: Stable ma2 Diagnosis - Bitten by dog - puncture wound to right leg, left upper thigh ma2 Followup: ma2 - With: Private Physician - When: Tomorrow - Reason: If symptoms return, Continuance of care Discharge Instructions: - Discharge Summary Sheet ma2 - Animal Bite, Adult, [id number] ma2 Forms: - Medication Reconciliation Form ma2 - Thank You Letter ma2 - Antibiotic Education ma2 - Prescription Opioid Use ma2 Signatures: Thong Pedersen, RN RN bp Jazlyn Lacy MD MD ma2 Fabienne Hunt RN RN vg1
--- NOTE | 2021-04-01 17:11 | ER ---
Nurse's Notes [facility] Name: Phu Barron Sr Age: 85 yrs Sex: Male : 1935 Arrival Date: 04/01/2021 Time: 15:56 Bed 2 Private MD: Tyshawn Doan R Diagnosis: Bitten by dog-puncture wound to right leg, left upper thigh Presentation: 04/01 16:21 Chief complaint: Patient states: Three days ago pt was riding bike when two dogs bit pt vg1 on Right lower leg and Left lower buttocks. States has already given a police report and was told that needed to be evaluated by a doctor. Pt denies any pain at this time. Coronavirus screen: Vaccine status: Patient reports receiving the 2nd dose of the covid vaccine. Client denies travel out of the [place] in the last 14 days. Ebola Screen: Patient negative for fever greater than or equal to 101.5 degrees Fahrenheit, and additional compatible Ebola Virus Disease symptoms. Initial Sepsis Screen: Does the patient meet any 2 criteria? No. Patient's initial sepsis screen is negative. Does the patient have a suspected source of infection? No. Patient's initial sepsis screen is negative. Risk Assessment: Do you want to hurt yourself or someone else? Patient reports no desire to harm self or others. Onset of symptoms was March 29, 2021. 16:21 Method Of Arrival: Ambulatory [facility] 16:21 Acuity: CHANTAL 4 vg1 Triage Assessment: 16:26 Bite description: bite sustained to lateral aspect of right calf and Left buttocks by a vg1 dog, animal information: vaccination(s) is unknown, was sustained 03/29/21 Animal status: known and can be quarantined. General: Appears in no apparent distress. comfortable, Behavior is calm, cooperative. Pain: Denies pain. 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 - Social history:: Smoking status: Patient denies any tobacco usage or history of. Patient/guardian denies using alcohol, street drugs, The patient lives with family. - Family history:: not pertinent. Screenin:30 Abuse screen: Denies threats or abuse. Denies injuries from another. Nutritional bp screening: No deficits noted. Tuberculosis screening: No symptoms or risk factors identified. Fall Risk None identified. Assessment: 16:30 General: SEE TRIAGE NOTE. Derm: Skin is intact, is healthy with good turgor, Skin is bp pink, warm \T\ dry. 17:45 Reassessment: PT D/C HOME AMBULATORY, DX WITH ANIMAL BITE. bp Vital Signs: 16:21 BP 141 / 68; Pulse 64; Resp 16; Temp 98.1; Pulse Ox 100% ; Weight 81.65 kg; Height 6 vg1 ft. 4 in. (193.04 cm); Pain 0/10; 17:45 BP 145 / 71; Pulse 65; Resp 17; Temp 98.2; Pulse Ox 100% ; bp 16:21 Body Mass Index 21.91 (81.65 kg, 193.04 cm) vg1 ED Course: 15:56 Patient arrived in ED. mr 15:56 Tyshawn Doan MD is Private Physician. mr 16:26 Triage completed. vg1 16:26 Arm band placed on. vg1 16:30 Patient has correct armband on for positive identification. Bed in low position. Call bp light in reach. Side rails up X2. 16:52 Thong Pedersen, RALPH is Primary Nurse. bp 16:55 Jazlyn Lacy MD is Attending Physician. ma2 17:45 No provider procedures requiring assistance completed. Patient did not have IV access bp during this emergency room visit. Administered Medications: 17:32 Drug: Tetanus-Diphtheria Toxoid Adult 0.5 ml {Twx Operator: LineaQuattro. Exp: bp 10/08/2022. Lot #: [id number]. } Route: IM; Site: right deltoid; 17:33 Follow up: Response: No adverse reaction bp Outcome: 17:11 Discharge ordered by . ma2 17:45 Discharged to home ambulatory. bp 17:45 Condition: stable 17:45 Discharge instructions given to patient, Instructed on discharge instructions, follow up and referral plans. Demonstrated understanding of instructions, follow-up care. 17:46 Patient left the ED. bp Signatures: Mary Peterson mr Thong Pedersen, RALPH RN bp Jazlyn Lacy MD MD ma2 Fabienne Hunt, RALPH RN vg1
[2021-04-01] MEDS ORDERED: TETANUS & DIPHTHERIA TOX,ADULT 0.5 ML VIAL ONE (17:24)
[2021-04-01 17:51] VITALS: O2SAT 100
[2021-04-01 17:53] VITALS: BP 145/71; TEMP 98.2
--- OUTSIDE RECORDS SUMMARY | 2021-04-09 12:43 | XMS REPORT | Continuity of Care Document ---
:1935 Author Organization [facility] t Address [address] [place] [address] Care Team Providers Name Role Phone [phone] Primary Care Physician Unavailable SYSTEM, NOT IN Attending Clinician Unavailable George HARRIS Attending Clinician Unavailable BRUCE Attending Clinician Unavailable ROXANA Attending Clinician Unavailable AJ DOMINGUEZ Attending Clinician Unavailable AJ DOMINGUEZ Admitting Clinician Unavailable Payers Payer Name Policy Type Policy Number Effective Date Expiration Date S aleah [facility] MEDICARE [id number] 2016 ADVANTAGE 00:00:00 Problems This patient has no known problems. Allergies, Adverse Reactions, Alerts This patient has no known allergies or adverse reactions. Medications This patient has no known medications. Procedures This patient has no known procedures. Encounters Start End Encounter Admission Attending Care Care Encounter Source Date/Time Date/Time Type Type Clinicians Facility Department ID 2020-06-03 Outpatient SYSTEM, MDA MDA [id number] 12:17:58 AROLDO babb 2020-04-06 Outpatient SYSTEM, MDA RONNIE [id number] 09:45:08 AROLDO babb 2020-05-17 2020-05-17 Outpatient EL HARRIS, MDA MDA [id number] 10:55:34 10:55:34 ANTHONY babb 2020-05-17 2020-05-17 Outpatient EL TIMCIUC, MDA MDA [id number] 09:15:02 09:15:02 CYNTHIA babb 2020-05-16 2020-05-16 Outpatient EL TIMCIUC, MDA MDA [id number] 08:23:21 23:59:00 CYNTHIA babb 2020-05-16 2020-05-16 Outpatient EL TIMCIUC, MDA MDA [id number] 10:16:27 10:16:27 CYNTHIA babb 2020-05-16 2020-05-16 Outpatient DAISY BARRERA [facility] [id number] 08:10:54 08:22:00 CYNTHIA Candelarioers o n 2020-04-05 2020-04-05 Outpatient DAISY HARRIS [facility] [id number] 13:21:09 13:21:09 ANTHONYELAINE Candelarioers o n 2020-04-05 2020-04-05 Outpatient DAISY SCHMIDT [facility] [id number] 13:19:44 13:19:44 SURENA Ross o n Results Test Description Test Time Test Comments Results Result Comments Source B-TYPE NATRIURETIC FACTOR (BNP) 2017-02-19 04:49:00 Test Item Value Reference Range Interpretation Comme nts B-TYPE NATRIURETIC PEPTIDE (BEAKER) (test code = 700) 279 pg/mL 0-100 H BASIC METABOLIC [id number] 04:47:00 Test Item Value Reference Range Interpretation [...] PATIEN TS. CBC W/PLT COUNT & AUTO [id number] 04:37:00 Test Item Value Reference Range Interpretation [...] (BEAKER) (test code = 2801) BASIC METABOLIC [id number] 04:58:00 Test Item Value Reference Range Interpretation [...] PATIEN TS. CBC W/PLT COUNT & AUTO [id number] 04:38:00 Test Item Value Reference Range Interpretation [...] = 2801) RAD, CHEST, 1 VIEW, NON [id number] 09:13:00Reason for exam:->s/p cabShould this be performed at the bedside?->YesFINAL REPORT Chest one view compared to February 15, 2017 Discussion: Cardiac prominence, pulmonary congestion, probable small effusions, suspected lower lung atelectasis are again noted overall similar. No pneumothorax. IMPRESSIONS: No significant change Signed: Melanie Alex Verified Date/Time: 02/16/2017 09:13:27 Reading Location: [facility] Radiology Reading Room CALCIUM, [id number] 00:40:00 Test Item Value Reference Range Interpretation Comments CALCIUM IONIZED (BEAKER) (test 1.10 mmol/L 1.12-1.27 L code = 698) PH, BLOOD (BEAKER) (test code = 7.47 1810) [id number] 00:37:00 Test Item Value Reference Range Interpretation Comments PHOSPHORUS (BEAKER) (test code = 2.3 mg/dL 2.3-4.7 604) [id number] 00:37:00 Test Item Value Reference Range Interpretation Comments MAGNESIUM (BEAKER) (test code = 2.2 mg/dL 1.6-2.6 627) BASIC METABOLIC [id number] 00:37:00 Test Item Value Reference Range Interpretation [...] PATIEN TS. CBC W/PLT COUNT & AUTO [id number] 00:05:00 Test Item Value Reference Range Interpretation [...] = 2801) RAD, CHEST, 1 VIEW, NON [id number] 08:15:00Reason for exam:->s/p cabShould this be performed at the bedside?->YesFINAL REPORT Chest one view compared to February 14 Discussion: Pulmonary con gestion, bilateral probable atelectasis, small left-sided effusion are noted. No pneumothorax. Rightchest tube is in place. IMPRESSIONS: No significant change Signed: Melanie Alex Verified Date/Time: 02/15/2017 08:15:42 Reading Location: [facility] Radiology Reading Room CALCIUM, [id number] 07:09:00 Test Item Value Reference Range Interpretation Comments CALCIUM IONIZED (BEAKER) (test 1.14 mmol/L 1.12-1.27 code = 698) PH, BLOOD (BEAKER) (test code = 7.40 1810) [id number] 06:21:00 Test Item Value Reference Range Interpretation Comments PHOSPHORUS (BEAKER) (test code = 2.7 mg/dL 2.3-4.7 604) [id number] 06:21:00 Test Item Value Reference Range Interpretation Comments MAGNESIUM (BEAKER) (test code = 2.2 mg/dL 1.6-2.6 627) BASIC METABOLIC [id number] 06:21:00 Test Item Value Reference Range Interpretation [...] PATIEN TS. CBC W/PLT COUNT & AUTO [id number] 06:14:00 Test Item Value Reference Range Interpretation [...] code = 2801) LACTIC ACID, VENOUS, WHOLE [id number] 06:11:00 Test Item Value Reference Range Interpretation Comments LACTATE BLOOD VENOUS (2) (BEAKER) 1.5 mmol/L 0.5-2.2 (test code = 2872) Effective 09/29/2015: Units/Reference Range ChangeNew: 0.5-2.2 mmol/L Previous: 5-20 mg/dLBASIC METABOLIC [id number] 14:18:00 Test Item Value Reference Range Interpretation [...] (test code = 413) PLATELET AGGREGATION: FUNCTION [id number] 10:02:00 Test Item Value Reference Range Interpretation Comments WEAK ADP 71 % 60-91 RESULT(BEAKER) (test code = 2135) PLATELET FUNCTION 60-100% indicates SCREEN INTERP (BEAKER) normal platelet (test code = 2173) function [id number] Yolanda Cullen MD (BEAKER) (test code = (electronic signature) 2622) PLATELET COUNT AGG 161 K/CU MM 150-450 (BEAKER) (test code = 2656) RAD, CHEST, 1 VIEW, NON [id number] 08:08:00Reason for exam:->s/p cabShould this be performed [...] MDReport Verified Date/Time: 02/14/2017 08:08:07 Reading Location: [facility] Imaging Reading Room - [place] [address] CALCIUM, [id number] 04:14:00 Test Item Value Reference Range Interpretation Comments CALCIUM IONIZED (BEAKER) (test 1.17 mmol/L 1.12-1.27 code = 698) PH, BLOOD (BEAKER) (test code = 7.37 1810) [id number] 04:02:00 Test Item Value Reference Range Interpretation Comments PHOSPHORUS (BEAKER) (test code = 2.4 mg/dL 2.3-4.7 604) [id number] 04:02:00 Test Item Value Reference Range Interpretation Comments MAGNESIUM (BEAKER) (test code = 2.0 mg/dL 1.6-2.6 627) BASIC METABOLIC [id number] 04:02:00 Test Item Value Reference Range Interpretation [...] DIALYSIS PATIEN TS. LACTIC ACID, ARTERIAL, WHOLE [id number] 03:54:00 Test Item Value Reference Range Interpretation Comments LACTATE BLOOD ARTERIAL (2) 3.7 mmol/L 0.5-2.2 H (BEAKER) (test code = 2874) Effective 09/29/2015: Units/Reference Range ChangeNew: 0.5-2.2 mmol/L Previous: 5-20 mg/dLCBC W/PLT COUNT & AUTO [id number] 03:50:00 Test Item Value Reference Range Interpretation [...] (BEAKER) (test code = 2801) BLOOD GAS, [id number] 03:49:00 Test Item Value Reference Range Interpretation [...] code = 1819) 36.0 % OXYGEN SATURATION, [id number] 03:43:00 Test Item Value Reference Range Interpretation Comments O2 SATURATION (MEASURED) (BEAKER) 72.9 % (test code = 1455) [id number] 01:21:00 Test Item Value Reference Range Interpretation Comments MAGNESIUM (BEAKER) (test code = 2.1 mg/dL 1.6-2.6 627) Check Serum Magnesium level 2 hours after IV magnesium replacement.BLOOD GAS, [id number] 01:18:00 Test Item Value Reference Range Interpretation [...] 1819) 40.0 % HGB/HCT (H&H) - STAT [id number] 01:18:00 Test Item Value Reference Range Interpretation Comments HEMOGLOBIN (BEAKER) (test code = 11.6 g/dL 13.0-16.8 L 410) HEMATOCRIT (BEAKER) (test code = 34.0 % 40.0-50.0 L 411) GLUCOSE-STAT [id number] 01:18:00 Test Item Value Reference Range Interpretation Comments GLUCOSE RANDOM (BEAKER) (test code 148 mg/dL 70-110 H = 652) CALCIUM, [id number] 01:12:00 Test Item Value Reference Range Interpretation Comments CALCIUM IONIZED (BEAKER) (test 1.17 mmol/L 1.12-1.27 code = 698) PH, BLOOD (BEAKER) (test code = 7.31 1810) Check serum Ionized Calcium level after 4 hours after IV Calcium replacement.CBC W/PLT COUNT & AUTO [id number] 22:40:00 Test Item Value Reference Range Interpretation [...] (test code = 1+ few 964) POCT-GLUCOSE [id number] 21:02:00 Test Item Value Reference Range Interpretation Comments POC-GLUCOSE METER 98 mg/dL 70-110 TESTED AT [facility] 6720 (BEAKER) (test code = RESHMA Elise [facility] [address] 1538) BLOOD GAS, [id number] 19:31:00 Test Item Value Reference Range Interpretation [...] 40.0 % RAD, CHEST, 1 VIEW, NON [id number] 18:11:00Reason for exam:->Post ACBShould this be performed [...] MDReport Verified Date/Time: 02/13/2017 18:11:25 Reading Location: [facility] B1 C013W Consult Reading Room [id number] 17:58:00 Test Item Value Reference Range Interpretation Comments MAGNESIUM (BEAKER) 2.6 mg/dL 1.6-2.6 Specimen slightly (test code = 627) hemolyzed [id number] 17:58:00 Test Item Value Reference Range Interpretation Comments PHOSPHORUS (BEAKER) 3.1 mg/dL 2.3-4.7 Specimen slightly (test code = 604) hemolyzed BASIC METABOLIC [id number] 17:58:00 Test Item Value Reference Range Interpretation [...] DIALYSIS PATIEN TS. LACTIC ACID, ARTERIAL, WHOLE [id number] 17:54:00 Test Item Value Reference Range Interpretation Comments LACTATE BLOOD 3.6 mmol/L 0.5-2.2 H Specimen sligh tly ARTERIAL (2) (BEAKER) hemoly zed (test code = 2874) Effective 09/29/2015: Units/Reference Range ChangeNew: 0.5-2.2 mmol/L Previous: 5-20 mg/[id number] 17:49:00 Test Item Value Reference Range Interpretation Comments PARTIAL THROMBOPLASTIN TIME 31.5 seconds 22.5-36.0 (BEAKER) (test code = 760) [id number] 17:49:00 Test Item Value Reference Range Interpretation Comments FIBRINOGEN LEVEL (BEAKER) (test 194 mg/dl 225-434 L code = 658) PROTHROMBIN [id number] 17:48:00 Test Item Value Reference Range Interpretation Comments PROTIME (BEAKER) (test code = 17.7 seconds 11.7-14.7 H 759) INR (BEAKER) (test code = 370) 1.5 <=5.9 RECOMMENDED COUMADIN/WARFARIN INR THERAPY RANGESSTANDARD DOSE: 2.0 - 3.0 Includes: PROPHYLAXIS forvenous thrombosis, systemic embolization; TREATMENT for venous thrombosis and/or pulmonary embolus.HIGH RISK: Target INR is 2.5-3.5 for patients with mechanical heart valves.OXYGEN SATURATION, [id number] 17:34:00 Test Item Value Reference Range Interpretation Comments O2 SATURATION (MEASURED) (BEAKER) 83.8 % (test code = 1455) SODIUM NA-STAT [id number] 17:25:00 Test Item Value Reference Range Interpretation Comments SODIUM (BEAKER) (test code = 381) 138 meq/L 135-148 CALCIUM, [id number] 17:25:00 Test Item Value Reference Range Interpretation Comments CALCIUM IONIZED (BEAKER) (test 1.16 mmol/L 1.12-1.27 code = 698) PH, BLOOD (BEAKER) (test code = 7.26 1810) BLOOD GAS, [id number] 17:25:00 Test Item Value Reference Range Interpretation [...] (test code = 1819) 60.0 % POTASSIUM-STAT [id number] 17:25:00 Test Item Value Reference Range Interpretation Comments POTASSIUM (BEAKER) (test code = 2.8 meq/L 3.6-5.5 L 379) GLUCOSE-STAT [id number] 17:25:00 Test Item Value Reference Range Interpretation Comments GLUCOSE RANDOM (BEAKER) (test code 211 mg/dL 70-110 H = 652) HGB/HCT (H&H) - STAT [id number] 17:25:00 Test Item Value Reference Range Interpretation Comments HEMOGLOBIN (BEAKER) (test code = 12.2 g/dL 13.0-16.8 L 410) HEMATOCRIT (BEAKER) (test code = 36.0 % 40.0-50.0 L 411) [id number] 16:53:00 Test Item Value Reference Range Interpretation Comments ACTIVATED CLOTTING TIME 98 sec TEST ED AT [place] [address] ([facility]) (test code = RESHMA Elise [facility] 441) [address] [id number] 16:53:00 Test Item Value Reference Range Interpretation Comments ACTIVATED CLOTTING TIME 345 sec TEST ED AT [place] [address] ([facility]) (test code = [place]HMA [place] [address]) [address] [id number] 16:53:00 Test Item Value Reference Range Interpretation Comments ACTIVATED CLOTTING TIME 417 sec TEST ED AT [place] [address] ([facility]) (test code = RESHMA Elise [facility] 441) [address] [id number] 16:53:00 Test Item Value Reference Range Interpretation Comments ACTIVATED CLOTTING TIME 400 sec TEST ED AT [place] [address] ([facility]) (test code = RESHMA [place] [address]) [address] THROMBOELASTOGRAPH ([id number])[id number] 16:34:00 Test Item Value Reference [...] MM 55.0-65.0 L (test code = 1413) [id number] 16:22:00 Test Item Value Reference Range Interpretation Comments PARTIAL THROMBOPLASTIN TIME 32.6 seconds 22.5-36.0 (BEAKER) (test code = 760) [id number] 16:22:00 Test Item Value Reference Range Interpretation Comments FIBRINOGEN LEVEL (BEAKER) (test 181 mg/dl 225-434 L code = 658) PROTHROMBIN [id number] 16:20:00 Test Item Value Reference Range Interpretation Comments PROTIME (BEAKER) (test code = 19.3 seconds 11.7-14.7 H 759) INR (BEAKER) (test code = 370) 1.6 <=5.9 RECOMMENDED COUMADIN/WARFARIN INR THERAPY RANGESSTANDARD DOSE: 2.0 - 3.0 Includes: PROPHYLAXIS forvenous thrombosis, systemic embolization; TREATMENT for venous thrombosis and/or pulmonary embolus.HIGH RISK: Target INR is 2.5-3.5 for patients with mechanical heart valves.PLATELET [id number] 16:13:00 Test Item Value Reference Range Interpretation Comments PLATELET COUNT (BEAKER) (test code 92 K/CU MM 150-450 L = 756) BLOOD GAS, [id number] 15:58:00 Test Item Value Reference Range Interpretation [...] (test code = 1819) 97.0 % GLUCOSE-STAT [id number] 15:58:00 Test Item Value Reference Range Interpretation Comments GLUCOSE RANDOM (BEAKER) (test code 157 mg/dL 70-110 H = 652) HGB/HCT (H&H) - STAT [id number] 15:58:00 Test Item Value Reference Range Interpretation Comments HEMOGLOBIN (BEAKER) (test code = 10.5 g/dL 13.0-16.8 L 410) HEMATOCRIT (BEAKER) (test code = 31.0 % 40.0-50.0 L 411) CALCIUM, [id number] 15:58:00 Test Item Value Reference Range Interpretation Comments CALCIUM IONIZED (BEAKER) (test 1.16 mmol/L 1.12-1.27 code = 698) PH, BLOOD (BEAKER) (test code = 7.33 1810) SODIUM NA-STAT [id number] 15:57:00 Test Item Value Reference Range Interpretation Comments SODIUM (BEAKER) (test code = 381) 136 meq/L 135-148 POTASSIUM-STAT [id number] 15:57:00 Test Item Value Reference Range Interpretation Comments POTASSIUM (BEAKER) (test code = 3.7 meq/L 3.6-5.5 379) SODIUM NA-STAT [id number] 15:18:00 Test Item Value Reference Range Interpretation Comments SODIUM (BEAKER) (test code = 381) 136 meq/L 135-148 POTASSIUM-STAT [id number] 15:18:00 Test Item Value Reference Range Interpretation Comments POTASSIUM (BEAKER) (test code = 4.1 meq/L 3.6-5.5 379) BLOOD GAS, [id number] 15:18:00 Test Item Value Reference Range Interpretation [...] (test code = 1819) 65.0 % GLUCOSE-STAT [id number] 15:18:00 Test Item Value Reference Range Interpretation Comments GLUCOSE RANDOM (BEAKER) (test code 142 mg/dL 70-110 H = 652) HGB/HCT (H&H) - STAT [id number] 15:18:00 Test Item Value Reference Range Interpretation Comments HEMOGLOBIN (BEAKER) (test code = 10.8 g/dL 13.0-16.8 L 410) HEMATOCRIT (BEAKER) (test code = 32.0 % 40.0-50.0 L 411) BLOOD GAS, [id number] 14:57:00 Test Item Value Reference Range Interpretation [...] 1819) 65.0 % HGB/HCT (H&H) - STAT [id number] 14:57:00 Test Item Value Reference Range Interpretation Comments HEMOGLOBIN (BEAKER) (test code = 10.3 g/dL 13.0-16.8 L 410) HEMATOCRIT (BEAKER) (test code = 30.0 % 40.0-50.0 L 411) GLUCOSE-STAT [id number] 14:56:00 Test Item Value Reference Range Interpretation Comments GLUCOSE RANDOM (BEAKER) (test code 107 mg/dL 70-110 = 652) SODIUM NA-STAT [id number] 14:56:00 Test Item Value Reference Range Interpretation Comments SODIUM (BEAKER) (test code = 381) 136 meq/L 135-148 POTASSIUM-STAT [id number] 14:56:00 Test Item Value Reference Range Interpretation Comments POTASSIUM (BEAKER) (test code = 3.6 meq/L 3.6-5.5 379) BLOOD GAS, [id number] 14:04:00 Test Item Value Reference Range Interpretation [...] (test code = 1819) 96.0 % GLUCOSE-STAT [id number] 13:59:00 Test Item Value Reference Range Interpretation Comments GLUCOSE RANDOM (BEAKER) (test code = 96 mg/dL 70-110 652) SODIUM NA-STAT [id number] 13:59:00 Test Item Value Reference Range Interpretation Comments SODIUM (BEAKER) (test code = 381) 141 meq/L 135-148 POTASSIUM-STAT [id number] 13:59:00 Test Item Value Reference Range Interpretation Comments POTASSIUM (BEAKER) (test code = 3.8 meq/L 3.6-5.5 379) HGB/HCT (H&H) - STAT [id number] 13:59:00 Test Item Value Reference Range Interpretation Comments HEMOGLOBIN (BEAKER) (test code = 13.5 g/dL 13.0-16.8 410) HEMATOCRIT (BEAKER) (test code = 40.0 % 40.0-50.0 411) HEMOGLOBIN [id number] 14:31:00 Test Item Value Reference Range Interpretation Comments HEMOGLOBIN A1C (BEAKER) (test code = 5.1 % 4.3-6.1 368) BASIC METABOLIC [id number] 14:08:00 Test Item Value Reference Range Interpretation [...] NOT APPLICABLE FOR DIALYSIS PATIEN TS. PROTHROMBIN [id number] 13:42:00 Test Item Value Reference Range Interpretation [...]
== END 2021-04-01 17:46 | disposition home or self-care (01) ==
LOC: ER 15:51
DX: S71.132A Puncture wound without foreign body, left thigh, initial encounter (principal); W54.0XXA Bitten by dog, initial encounter; Y93.55 Activity, bike riding; Z23 Encounter for immunization; Z95.1 Presence of aortocoronary bypass graft; I10 Essential (primary) hypertension
CPT/HCPCS: 90471; 90714; 99283

== ENCOUNTER 2022-02-01 10:38 | Day surgery (SDC) | payer OTHER ==
[2022-02-01] MEDS ORDERED: Ringers Lactate 1,000 ML IV ONE (11:10)
[2022-02-01] MEDS ORDERED: CEFAZOLIN SODIUM 1 GM/VIAL ONE (11:10)
[2022-02-01 11:19] VITALS: O2SAT 97
--- NOTE | 2022-02-01 11:29 | RAD REPORT ---
EXAM DESCRIPTION: RAD - Chest Pa And Lat (2 Views) - 02/01/2022 11:21 am CLINICAL HISTORY: pre procedure screening COMPARISON: Chest Pa And Lat (2 Views) dated 02/24/2016; CHEST SINGLE VIEW dated 02/22/2013; CHEST SIN GLE VIEW dated 07/07/2010; CHEST SINGLE VIEW dated 07/06/2010 FINDINGS: Lines: None. Lungs: Linear opacities in the bases bilaterally consistent with scarring. No acute process identifie d. . Pleural: No significant pleural effusions or pneumothorax. Cardiac: Cardiomegaly. Pacemaker/ICD Mediastinum: Within normal limits. Bones: No acute fractures. Sternotomy. Remote left-sided rib fractures. Mild wedge compression deform ity in the midthoracic spine. This is chronic. Other: None IMPRESSION: No acute cardiopulmonary disease. Mild scarring in the lung bases.
[2022-02-01] MEDS ORDERED: ONDANSETRON 4 MG/2 ML VIAL ONE (11:36)
[2022-02-01] MEDS ORDERED: FENTANYL CITR 100 MCG/2 ML ONE (11:36)
[2022-02-01] MEDS ORDERED: LIDOCAINE 1% MPF 5 ML VIAL ONE (11:36)
[2022-02-01] MEDS ORDERED: propofoL 200 MG/20 ML VIAL IV ONE (11:36)
[2022-02-01 11:47] LABS: Absolute Lymphocytes (CBC) 0.6 K/uL (0.7-4.9); Hematocrit 38.8 % (39.6-49.0); Lymphocytes % 13.8 % (15.3-44.8); MCV 101.7 fL (80-100); MPV 7.1 fL (7.6-11.3); RBC Red Blood Cell Count 3.82 M/uL (4.33-5.43)
[2022-02-01 12:00] LABS: Potassium 4.1 mmol/L (3.5-5.1)
--- NOTE | 2022-02-01 12:25 | P.BOP ---
Preoperative diagnosis: left forearm ulcerated mass Primary procedure: Wide excision with frozen section L forearm 3 x 3cm Die Forger: Molly Falcon (Bonita) Estimated blood loss: <10cc Specimen: mass Anesthesia: Local Complications: None Transferred to: Recovery Room Condition: Good
--- NOTE | 2022-02-01 12:45 | EKG ---
Test Date: 2022-02-01 Test Time: 11:03:01 Pole Tester: ROCKY MEASUREMENT RESULTS: Intervals: Rate: 65 ID: [id number] QRSD: 112 QT: 408 QTc: 424 [place]: P: ID: [id number] QRS: -27 T: 101 INTERPRETIVE STATEMENTS: Electronic atrial pacemaker Moderate voltage criteria for LVH, may be normal variant Inferior infarct, age undetermined Anterolateral infarct, age undetermined Abnormal ECG Compared to ECG 02/25/2013 07:27:08 Sinus rhythm no longer present First degree AV block no longer present Early repolarization no longer present Myocardial infarct finding still present Electronically Signed On 02-01-22 12:45:37 CDT by Tony Doan
[2022-02-01 13:15] VITALS: BP 159/74; TEMP 98.1
[2022-02-01 14:42] LABS: SARS-CoV-2 Antigen Rapid Res Negative (Negative)
== END 2022-02-01 13:27 | disposition home or self-care (01) ==
LOC: OR 10:38
PROVIDERS: ATTEND Surgery
PROC: 0JBH0ZZ Excision of Left Lower Arm Subcutaneous Tissue and Fascia, Open Approach (ICD-10-PCS; principal; 2022-02-01 12:30)
DX: C44.629 Squamous cell carcinoma of skin of left upper limb, including shoulder (principal); Z20.822 Contact with and (suspected) exposure to COVID-19
CPT/HCPCS: 36415; 71046; 80048; 85025; 87811; 88305; 88331; 88332; 93005; J0690; J2001; J2405; J2704; J3010; J7120